=== PATIENT | male | born 1955 | race Caucasian/White ===

== ENCOUNTER → 2019-04-28 08:52 | Outpatient (CLI) | payer BC, OTHER, SELFPAY ==
--- NOTE | ~2019-04-28 | XR_ITS ---
XR hip LT 2V w AP pelvis DATE: 04/28/2019 09:18 INDICATION: Left hip pain TECHNIQUE: AP pelvis. AP and lateral views of left hip COMPARISON: 05/31/2016 pelvis and left hip FINDINGS: Status post left total hip arthroplasty; stable lucencies along the superolateral left acet abulum, not significantly changed since 05/31/2016.. No pelvic fracture or left hip fracture or disloc ation. The pubic symphysis and sacroiliac joints appear intact. Mild right hip osteoarthritis. Enthesopathy of the pelvic bones. IMPRESSION: Left total hip arthroplasty Mild right hip osteoarthritis Reviewed, dictated and finalized at location B. H PICKER
== END ==
PROVIDERS: PCP Family Medicine; Visit Provider Nurse Practitioner Family
DX: M16.12 Unilateral primary osteoarthritis, left hip (principal)
CPT/HCPCS: 73502; 73521

== ENCOUNTER 2020-01-07 08:23 | Outpatient (CLI) | payer BC, OTHER, SELFPAY ==
[2020-01-07 09:04] LABS: Basophils Percent Auto 0.4 % (0.2-1.2); Eosinophils Absolute Auto 0.3 K/mm3 (0-0.3); Eosinophils Percent Auto 2.9 % (0-4.4); Hematocrit 47.6 % (42.0-52.0); Hemoglobin 15.6 g/dL (14.0-18.0); Immature Granulocyte Absolute 0.03 K/mm3 (0.00-0.031); Immature Granulocyte Percent A 0.4 % (0-0.5); Lymphocytes Absolute Auto 2.89 K/mm3 (0.9-3.2); Lymphocytes Percent Auto 33.8 % (18.3-44.2); Mean Corpuscular HGB Conc 32.8 g/dl (32-36); Mean Corpuscular Hemoglobin 30.1 pg (26-34); Mean Corpuscular Volume 91.9 fl (80-100); Mean Platelet Volume 12.5 fl (7.4-10.4); Monocytes Absolute Auto 0.5 K/mm3 (0.1-0.6); Monocytes Percent Auto 6.3 % (2.6-8.5); Neutrophils Absolute Auto 4.8 K/mm3 (1.3-6.7); Neutrophils Percent Auto 56.2 % (45.5-73.1); Platelet Count Result 122 k/mm3 (150-375); Red Blood Count 5.18 M/mm3 (4.6-6.20); Red Cell Distribution Width 13.8 % (11.5-14.5); White Blood Count 8.5 K/mm3 (4.5-10.0)
[2020-01-07 09:08] LABS: Iron 67 ug/dL (49-181)
[2020-01-07 09:10] LABS: Alanine Aminotransferase 27 U/L (4-50); Albumin Level 3.9 g/dL (3.5-5.1); Alkaline Phosphatase 89 U/L (38-126); Anion Gap 4 mmol/L (8-16); Aspartate Amino Transferase 27 U/L (17-59); Bilirubin,Total 0.6 mg/dL (0.2-1.3); Blood Urea Nitrogen 24 mg/dL (9-20); Calcium 8.9 mg/dL (8.4-10.2); Carbon Dioxide 32 mmol/L (22-30); Chloride 104 mmol/L (98-107); Estimated Glomerular Filt Rate > 60; Glucose 102 mg/dL (75-110); Potassium 5.1 mmol/L (3.4-5.0); Sodium 140 mmol/L (137-145)
[2020-01-07 09:19] LABS: Percent Iron Saturation 22 % (20-50)
[2020-01-07 10:17] LABS: Folic Acid 19.7 ng/mL (2.76->20)
== END 2020-01-07 08:24 | disposition home or self-care (01) ==
LOC: ANHLAB 08:26
PROVIDERS: PCP Family Medicine; Visit Provider Internal Medicine Hematology & Oncology
DX: D69.59 Other secondary thrombocytopenia (principal)
CPT/HCPCS: 36415; 80053; 82607; 82728; 82746; 83540; 83550; 85025

== ENCOUNTER 2020-01-08 08:40 | Outpatient (CLI) | payer BC, OTHER, SELFPAY ==
--- NOTE | ~2020-01-08 | US_ITS ---
EXAMINATION: US abdomen complete DATE: 01/08/2020 09:25 INDICATION: Other secondary thrombocytopenia. TECHNIQUE: Multiple grayscale and Doppler ultrasound images of the abdomen were obtained. COMPARISON: None FINDINGS: The visualized portions of the head and body of the pancreas are normal. The abdominal aort a is normal in caliber. Inferior vena cava is normal. The liver is normal without focal lesion. No li stephan surface nodularity. There is normal flow in main portal vein. The gallbladder is absent. The comm on duct is normal and measures 8 mm. The kidneys are normal in size. The spleen is normal in size and measures 12.9 cm. IMPRESSION: 1. Normal complete abdomen ultrasound status post cholecystectomy. Reviewed, dictated and finalized at location A.
== END 2020-01-08 08:41 | disposition home or self-care (01) ==
PROVIDERS: PCP Family Medicine; Visit Provider Internal Medicine Hematology & Oncology
DX: D69.59 Other secondary thrombocytopenia (principal)
CPT/HCPCS: 76700

== ENCOUNTER → 2020-02-02 10:12 | Outpatient (CLI) | payer BC, OTHER, SELFPAY ==
--- NOTE | ~2020-02-02 | XR_ITS ---
EXAMINATION: XR_[id number]_CR DATE: 02/02/2020 10:49 INDICATION: Neck pain. TECHNIQUE: 4 views of cervical spine on 5 radiographs were obtained. COMPARISON: Cervical spine radiographs 07/23/2006 FINDINGS: Bone alignment is normal. Vertebral body heights and intervertebral disc heights are normal . There are bulky anterior endplate osteophytes from C4-C5 through C6-C7. The facet joints are unrema rkable. No central canal stenosis or prevertebral soft tissue swelling. IMPRESSION: 1. Mild cervical spondylosis. Reviewed, dictated and finalized at location B. APPLIANCE ASSEMBLER
--- NOTE | ~2020-02-02 | XR_ITS ---
EXAMINATION: XR shoulder RT min 2V EXAM DATE: 02/02/2020 10:49 INDICATION: M25.511 - Pain in right shoulder . TECHNIQUE: The following right shoulder projections obtained: frontal projection with internal rotati on, frontal projection with external rotation, Grashey, and axillary (4+ views). There is no prior s tudy for comparison. FINDINGS: No evidence of right shoulder rotator cuff calcific tendinosis. There is moderate glenoh umeral, severe acromioclavicular joint primary osteoarthritis. Bony productive change along the infe rior aspect of the glenoid. There are no acute fractures or dislocations identified. There is no sub cutaneous gas. The soft tissue is unremarkable. There are no radiopaque foreign bodies. IMPRESSION: Osteoarthritis. Reviewed, dictated and finalized at location A. ASSOCIATE IMPRESSION: Osteoarthritis.
== END ==
PROVIDERS: Visit Provider Nurse Practitioner Family
DX: M47.892 Other spondylosis, cervical region (principal); M19.011 Primary osteoarthritis, right shoulder
CPT/HCPCS: 72040; 73030

== ENCOUNTER → 2020-04-29 00:19 | Outpatient (CLI) | payer BC, OTHER, SELFPAY ==
[2020-04-29 20:39] LABS: SARS-CoV-2 RNA PCR Negative
== END ==
PROVIDERS: PCP Family Medicine; Visit Provider Orthopaedic Surgery
DX: Z01.812 Encounter for preprocedural laboratory examination (principal); Z20.822 Contact with and (suspected) exposure to COVID-19
CPT/HCPCS: C9803; U0003; U0005

== ENCOUNTER 2020-05-01 10:26 | Outpatient (CLI) | payer BC, OTHER, SELFPAY ==
--- NOTE | 2020-05-01 10:30 | ECG_ITS ---
Measurements Intervals Filion Rate: 61 P: 36 CA: 152 QRS: 35 QRSD: 95 T: 72 QT: 408 QTc: 412 Interpretive Statements SINUS RHYTHM WITH SINUS ARRHYTHMIA NONSPECIFIC ST & T-WAVE ABNORMALITY- HIGH LATERAL LEADS BORDERLINE ECG Electronically Signed On 05-01-2020 10:43:39 DEPENDENCY COUNSELOR by Jace Heard D.O.
== END 2020-05-01 10:27 | disposition home or self-care (01) ==
LOC: ANHSURGERY 10:30
PROVIDERS: PCP Family Medicine; Visit Provider Orthopaedic Surgery
DX: Z01.818 Encounter for other preprocedural examination (principal); I10 Essential (primary) hypertension; R94.31 Abnormal electrocardiogram [ECG] [EKG]
CPT/HCPCS: 93005

== ENCOUNTER 2020-05-03 00:19 | Day surgery (SDC) | payer BC, OTHER, SELFPAY ==
--- NOTE | 2020-04-25 10:17 | PM.IMHP ---
H&P: HPI History of Present Illness Chief Complaint: Right shoulder pain Narrative: Shoulder/Arm Injury/Condition Pt presents with Right shoulder pain. His pain has been present for years but he has noticed worsening pain, over the past ~3 months, after he was cutting a tree down. His pain is primarily posterior and radiates up the right side of his neck. The pain does wake him at night. He had an MRI 02/04/2020. Dominant hand: right Current symptoms: Reports radiation Location: ACJ, humeral neck, posterior, medial, lateral, lateral neck - right and submandibular Character: constant Onset: 4-6 months Exacerbated by: motion, prolonged activity, reaching/overhead motion and lying on affected side Previous treatments: Anti-inflammatory meds: right and Ice: right Improved by treatment/surgery: some Review of Systems Review of Systems: All systems reviewed & are unremarkable except as noted in HPI and below Constitutional: Constitutional: Denies headache(s) and Denies weakness Eyes: Eyes: Denies blurry vision, Denies change in vision and Denies loss of vision ENT: Denies dizziness, Denies dry mouth, Denies headache(s) and Denies nasal congestion Cardiovascular: Cardiovascular: Denies chest pain, Denies syncope, Denies leg edema and Denies dyspnea on exertion Respiratory: Respiratory: Denies cough and Denies dyspnea on exertion Gastrointestinal: Gastrointestinal: Denies abdominal pain, Denies constipation and Denies diarrhea Genitourinary: Genitourinary: Denies urinary frequency Musculoskeletal: Musculoskeletal: Reports as per HPI and Denies numbness Integumentary/Breasts: Skin/Breast: Reports system reviewed and no additional complaints, except as docu Neurologic: Denies dizziness, Denies syncope, Denies headache(s), Denies loss of vision, Denies numbness and Denies weakness Psychiatric: Psychiatric: Reports no additional psychiatric complaints Endocrine: Endocrine: Reports no additional endocrine complaints Hematologic/Lymphatic: Hematologic/Lymphatic: Reports no additional hematologic/lymphatic complaints [facility] Past Medical History Medical History (Updated 03/30/20 @ 14:59 by Najma Pena, RT(R)) BMI 38.0-38.9,adult Claustrophobia Surgical History Surgical History (Updated 03/30/20 @ 14:59 by Najma Pena, RT(R)) History of total right hip arthroplasty Family History Family History Father Hypertension Cerebrovascular accident Family history of diabetes mellitus in first degree relative Family history of coronary artery disease Grandparent Family history of malignant neoplasm Mother Family history of Alzheimer's disease Sibling Acute myocardial infarction Other Family history of heart disease in male family member before age 55 Social History Social History (Updated 03/30/20 @ 15:00 by Najma Pena, RT(R)) Smoking status: Never smoker Alcohol intake: current Drinks per week: 1 Substance use: never Substance use type: does not use Gender identity (if verbalized by the patient): Male Meds Home Medications and Allergies Home Medications Medication Instructions Recorded Confirmed Type naproxen sodium 220 mg tablet 220 mg PO Q12H 04/14/19 03/30/20 History sildenafil 100 mg tablet 100 mg PO DAILY PRN #15 tablet 09/29/19 03/30/20 Rx fluticasone propionate 50 See Rx Instructions .ROUTE 01/16/20 03/30/20 Rx mcg/actuation nasal .COMPLEX #16 gram spray,suspension alprazolam 0.25 mg tablet 0.25 mg PO BID PRN #4 tablet 02/01/20 03/30/20 Rx venlafaxine 75 mg capsule,extended See Rx Instructions .ROUTE 02/14/20 03/30/20 Rx release 24 hr .COMPLEX #90 cap tamsulosin 0.4 mg capsule See Rx Instructions .ROUTE 02/23/20 03/30/20 Rx .COMPLEX #90 cap hydrocodone 5 mg-acetaminophen 300 1 tablet PO TID PRN #21 tablet 03/01/20 03/30/20 Rx mg tablet nebivolol 5 mg tablet See Rx Instructions .ROUTE 03/21/20
[2020-04-27 18:29] VITALS: BMI 39.9
--- NOTE | 2020-05-02 12:09 | WPDANESEPPF ---
Anes - Initial Pre Proc Eval Procedure: Operation Date: 05/03/20 12:00 Proposed Procedures p Right Rotator Cuff Repair - Naun Elmore MD Date/Time: 05/02/20 12:09 Surgeon: Naun Elmore MD Pre Op Diagnosis: Right Shoulder Rotator Cuff Tear Patient Data Age: 64 Gender: M Height: 1.75 m Weight: 122.72 kg Allergies Allergy/AdvReac Type Severity Reaction Status Date / Time No Known Allergies Allergy Verified 04/27/20 17:55 Home Medications Medication Instructions Recorded Confirmed Type naproxen sodium 220 mg tablet 220 mg PO Q12H 04/14/19 04/27/20 History venlafaxine 75 mg capsule,extended See Rx Instructions .ROUTE 02/14/20 04/27/20 Rx release 24 hr .COMPLEX #90 cap chlorhexidine gluconate 4 % 1 applic TOPICAL ONCE #237 ml 04/03/20 04/27/20 Rx topical liquid Bystolic 5 mg PO DAILY 04/27/20 04/27/20 History cetirizine [Zyrtec] 10 mg PO DAILY 04/27/20 04/27/20 History ovptuskxyykc-kvq-ksrp-FA-vit K 1 tablet PO 04/27/20 History [Adults Multivitamin] rosuvastatin 10 mg PO DAILY 04/27/20 04/27/20 History tamsulosin 0.4 mg PO DAILY 04/27/20 04/27/20 History Patient hx anesthesia problems: none Family hx anesthesia problems: none PMFSH Past Medical History Medical History (Updated 05/02/20 @ 12:10 by Nabeel West MD) BMI 38.0-38.9,adult Claustrophobia Depression Essential (primary) hypertension Mixed hyperlipidemia JESS (obstructive sleep apnea) Radiculopathy due to disorder of intervertebral disc of lumbar spine Surgical History Surgical History (Updated 03/30/20 @ 14:59 by Najma Pena RT(R)) History of total right hip arthroplasty Family History Family History Father Hypertension Cerebrovascular accident Family history of diabetes mellitus in first degree relative Family history of coronary artery disease Grandparent Family history of malignant neoplasm Mother Family history of Alzheimer's disease Sibling Acute myocardial infarction Other Family history of heart disease in male family member before age 55 Social History Social History (Updated 03/30/20 @ 15:00 by Najma Pena RT(R)) Smoking status: Never smoker Alcohol intake: current Drinks per week: 1 Substance use: never Substance use type: does not use Living arrangements: with family Gender identity (if verbalized by the patient): Male Spiritual care concerns: No Anes - Eval Final PreProcedure Day of Procedure 05/02/20 12:09 Patient weight: obese Heart: regular rate and rhythm Lungs: clear to auscultation and normal air movement Airway: Mallampati scale class II Neurological: alert and oriented Last oral intake: >/= 8 hours ASA classification: III Emergent: no Anesthetic plan: proceed Anesthesia type and monitoring: general ETT Informed Consent: The patient's anesthetic plan and its attendant risks and benefits were discussed with the patient/family/POA. Questions were solicited and answers provided to the satisfaction of the patient/family/POA.
--- NOTE | 2020-05-02 12:11 | WPDANESPNB ---
Anes - Peripheral Nerve Block Date/Time: 05/02/20 12:11 I have discussed with the patient/family/POA the placement of a peripheral nerve block for post-operative pain management, including associated risks, benefits, complications, and side effects. Alternative methods of post-operative analgesia were detailed. Questions were solicited and answers provided to the satisfaction of the patient/family/POA. Time-Out: A pre-procedural Time-Out was completed immediately before starting the procedure and confirmed: Patient Identification, Site, Procedure, Patient Position and the Availability of Requisite Equipment. Clinical Indications: Acute post-operative pain management requested by the operative surgeon. Nerve Block Insertion Note Anes-nerve block: supraclavicular right Patient position: supine Skin prep: chlorhexidine Needle: 22 gauge, stimulating, insulated echogenic needle. Needle length: 80 mm Technique: ultrasound (in plane) Injectate: bupivacaine 0.5% with epi 5 mcg/ml (20cc) Observations: tolerated well Complications: none Procedure start time:: 1305 Procedure end time:: 1310
[2020-05-03] VITALS (7 sets, daily range): BP systolic 110–162; BP diastolic 66–85; PULSE 70–87; RESP 16–19; TEMP 36.2–36.6; O2SAT 93–97
--- NOTE | 2020-05-03 07:38 | WPDHPUPDATE1 ---
History and Physical Update Update Date/Time: 05/03/20 07:38 History and Physical has been reviewed, including an updated exam of the patient. There are NO changes in the patient's condition. Risks, benefits, and alternatives have been discussed and questions answered. Patient agrees to proceed with procedure.
[2020-05-03] MEDS: ACETAMINOPHEN 500 MG TABLET 1000 MG PO (10:41)
[2020-05-03] MEDS: CELECOXIB 200 MG CAPSULE PO (10:42)
[2020-05-03] MEDS: LACTATED RINGERS 1,000 ML 30 ML IV CONT ×2 (10:45→15:28)
--- NOTE | 2020-05-03 11:02 | SUR.PREOP ---
PT UPDATED ON SURGERY TIME DELAY.
--- NOTE | 2020-05-03 12:50 | SUR.PREOP ---
1225 PT UPDATED ABOUT CONTINUED SURGERY TIME DELAY
[2020-05-03] MEDS: ceFAZolin 3 GM/D5W 100 ML 100 ML IVPB (13:19)
--- NOTE | 2020-05-03 15:33 | P.OP_ITS ---
Procedure Note - Detailed Date of procedure: 05/03/20 Pre-op diagnosis: Right Shoulder Rotator Cuff Tear Post-op diagnosis: same Procedure performed: REPAIR OF RIGHT ROTATOR CUFF Description of procedure: THE PATIENT WAS TAKEN TO THE OPERATING ROOM AND THEN INTUBATED AND PLACED IN THE BEACH CHAIR POSITION. THE RIGHT UPPER EXTREMITY WAS PREPPED AND DRAPED IN THE NORMAL STERILE FASHION. AN INCISION WAS MADE IN BETWEEN THE TRISTAN-LATERAL ACROMION AND THE AC JOINT. THE FASCIA WAS IDENTIFIED. NEXT A MINI OPEN INCISION WAS MADE THROUGH THE DELTOID MUSCLE EXPOSING THE SUBACROMIAL SPACE. A LIMITED ACROMIOPLASTY WAS PREFORMED. THE ROTATOR CUFF WAS IDENTIFIED. THERE WAS A FULL THICKNESS TEAR. IT MEASURED APPROXIMATELY 2 CM X 1 CM. THE GREATER TUBEROSITY WAS DEBRIDED TO BLEEDING BONE. 2 ARTHREX 5.5 SUTURE ANCHORS WERE PLACED IN TO GOOD BONE AND HAD VERY GOOD BITES. GABINO-WAGNER TYPE REPAIRS WERE DONE TO THE ROTATOR CUFF AND THERE WAS GOOD APPROXIMATION TO THE GREATER TUBEROSITY. THE REPAIR WAS EXCELLENT. THERE WAS NO IMPINGEMENT ON THE REPAIR FROM THE ACROMION WITH RANGE OF MOTION. THE WOUND WAS IRRIGATED WITH COPIOUS AMOUNTS OF ANTIBIOTIC SOLUTION. THE DELTOID MUSCLE WAS REPAIRED WITH #2 FIBER WIRE AND 0 VICRYL SUTURE. THE SUBCUTANEOUS LAYER WAS APPROXIMATED WITH 2- 0 VICRYL. THE SKIN WAS APPROXIMATED WITH 3-0 QUIL AND DERMABOND. STERILE DRESSING WAS APPLIED. PATIENT WAS EXTUBATED. Anesthesia: GETA Surgeon: Naun Elmore MD Estimated blood loss (mL): 20 Complications: No immediate complications Condition: stable Disposition: PACU
== END 2020-05-03 16:57 | disposition home or self-care (01) ==
PROVIDERS: Family Provider Family Medicine; PCP Family Medicine; Visit Provider Orthopaedic Surgery
PROC: (CPT 23420; principal; 2020-05-03 12:00)
DX: M75.101 Unspecified rotator cuff tear or rupture of right shoulder, not specified as traumatic (principal); G89.18 Other acute postprocedural pain
CPT/HCPCS: 23420; 64415; A9270; C1713; J0330; J0690; J1100; J2250; J2370; J2405; J2704; J3010; J7120

== ENCOUNTER → 2020-06-06 00:31 | Outpatient (CLI) | payer MEDICARE, BC, OTHER, SELFPAY ==
[2020-06-06 18:32] LABS: SARS-CoV-2 RNA PCR Negative
== END ==
PROVIDERS: PCP Family Medicine; Visit Provider Orthopaedic Surgery
DX: Z01.812 Encounter for preprocedural laboratory examination (principal); Z20.822 Contact with and (suspected) exposure to COVID-19
CPT/HCPCS: C9803; U0003; U0005

== ENCOUNTER 2020-06-09 14:33 | Inpatient (IN) | payer MEDICARE, BC, OTHER, SELFPAY ==
[2020-06-05 15:45] VITALS: BMI 40.6
--- NOTE | 2020-06-08 10:18 | WPDANESEPPF ---
Anes - Initial Pre Proc Eval Procedure: Operation Date: 06/09/20 10:00 Proposed Procedures p Right Shoulder Incision And Drainage - Naun Elmore MD Date/Time: 06/08/20 10:18 Surgeon: Naun Elmore MD Pre Op Diagnosis: Post Op Wound Abscess Patient Data Age: 64 Gender: M Height: 1.75 m Weight: 125 kg Allergies Allergy/AdvReac Type Severity Reaction Status Date / Time No Known Allergies Allergy Verified 06/09/20 08:17 Home Medications Medication Instructions Recorded Confirmed Type naproxen sodium 220 mg tablet 220 mg PO Q12H 04/14/19 06/09/20 History Adults Multivitamin 1 tablet PO DAILY 04/27/20 06/09/20 History Zyrtec 10 mg PO DAILY 04/27/20 06/09/20 History nebivolol 5 mg tablet See Rx Instructions .ROUTE 05/08/20 06/09/20 Rx .COMPLEX #90 tablet rosuvastatin 10 mg tablet See Rx Instructions .ROUTE 05/08/20 06/09/20 Rx .COMPLEX #90 tablet tamsulosin 0.4 mg capsule See Rx Instructions .ROUTE 05/08/20 06/09/20 Rx .COMPLEX #90 capsule venlafaxine 75 mg capsule,extended See Rx Instructions .ROUTE 05/12/20 06/09/20 Rx release 24 hr .COMPLEX #90 cap clindamycin HCl 300 mg capsule 300 mg PO TID #42 cap 05/29/20 06/09/20 Rx Patient hx anesthesia problems: none Family hx anesthesia problems: none PMFSH Past Medical History Medical History BMI 38.0-38.9,adult Claustrophobia Depression Essential (primary) hypertension Mixed hyperlipidemia JESS (obstructive sleep apnea) Radiculopathy due to disorder of intervertebral disc of lumbar spine Surgical History Surgical History History of total right hip arthroplasty Family History Family History Father Hypertension Cerebrovascular accident Family history of diabetes mellitus in first degree relative Family history of coronary artery disease Grandparent Family history of malignant neoplasm Mother Family history of Alzheimer's disease Sibling Acute myocardial infarction Other Family history of heart disease in male family member before age 55 Social History Social History Second hand tobacco smoke exposure: No Alcohol intake: current Drinks per week: 1 Substance use: never Substance use type: does not use Living arrangements: with family Gender identity (if verbalized by the patient): Male Spiritual care concerns: No Anes - Eval Final PreProcedure Day of Procedure 06/08/20 10:18 Patient weight: morbidly obese Heart: regular rate and rhythm Lungs: clear to auscultation and normal air movement Airway: Mallampati scale class III Neurological: alert and oriented Last oral intake: >/= 8 hours ASA classification: III Emergent: no Anesthetic plan: proceed Anesthesia type and monitoring: general ETT and standard monitoring Informed Consent: The patient's anesthetic plan and its attendant risks and benefits were discussed with the patient/family/POA. Questions were solicited and answers provided to the satisfaction of the patient/family/POA.
[2020-06-09] VITALS (12 sets, daily range): BP systolic 113–144; BP diastolic 59–78; PULSE 67–93; RESP 12–18; TEMP 36.1–36.9; O2SAT 94–100; BMI 43.2
--- NOTE | ~2020-06-09 | XR_ITS ---
EXAMINATION: XR chest PICC line DATE: 06/11/2020 14:14 INDICATION: PICC line placement TECHNIQUE: frontal view of the chest was obtained. COMPARISON: Chest radiograph dated 11/30/2008 FINDINGS: Left upper extremity peripherally inserted central venous catheter (PICC) tip at the caudal superior vena cava. Lungs remain clear with no focal airspace opacities, pulmonary edema, pleural effusion or pneumothorax. The cardiomediastinal silhouette is within normal limits for AP technique. There are b ridging osteophytes at multiple levels in the spine, consistent with diffuse idiopathic skeletal hype rostosis (DISH). 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 IMPRESSION: 1. Left upper extremity peripherally inserted central venous catheter tip at the caudal superior vena cava. 2. No acute cardiopulmonary disease. Reviewed, dictated and finalized at location A. IMPRESSION: 1. Left upper extremity peripherally inserted central venous catheter tip at th e caudal superior vena cava. 2. No acute cardiopulmonary disease.
--- NOTE | 2020-06-09 07:24 | WPDHPUPDATE1 ---
History and Physical Update Update Date/Time: 06/09/20 07:24 History and Physical has been reviewed, including an updated exam of the patient. There are NO changes in the patient's condition. Risks, benefits, and alternatives have been discussed and questions answered. Patient agrees to proceed with procedure.
[2020-06-09] MEDS: LACTATED RINGERS 1,000 ML 30 ML IV CONT ×2 (08:39→13:19)
[2020-06-09] MEDS: ACETAMINOPHEN 500 MG TABLET 1000 MG PO (08:39)
[2020-06-09] MEDS: CELECOXIB 200 MG CAPSULE PO (08:40)
[2020-06-09] MEDS: BUPIVACAINE HCL 0.5% PF 30 ML VIAL INFILTRATE (12:29)
[2020-06-09] MEDS: fentaNYL CITRATE INJ (*CRX) 100 MCG/2 ML VIAL 25 MCG IV PUSH ×5 (13:38→14:15)
--- NOTE | 2020-06-09 13:49 | PM.PROC ---
Procedure Note - Detailed Date of procedure: 06/09/20 Pre-op diagnosis: Post Op Wound Abscess RIGHT SHOULDER WOUND INFECTION Post-op diagnosis: same Procedure performed: INCISION AND DRAINAGE AND IRRIGATION AND DEBRIDEMENT RIGHT SHOULDER ABSCESS Description of procedure: HISTORY: IGNACIA UNDERWENT RIGHT ROTATOR CUFF REPAIR ABOUT 5 WEEKS AGO. POST OP F/U REVEALED HE HAD A SEROUS DRAINING WOUND AT ABOUT 4 WEEKS POSTOP. HE WAS THEN FOLLOWED CLOSELY AND THE WOUND SHOWED SIGNS OF INFECTION WITH PURULENCE DESPITE ORAL ANTIBIOTIC USE. HE WAS INDICATED FOR I AND D RIGHT SHOULDER. PROCEDURE: THE THE PATIENT WAS TAKEN TO THE OPERATING ROOM AND THEN INTUBATED AND PLACED IN THE BEACH CHAIR POSITION. THE RIGHT UPPER EXTREMITY WAS PREPPED AND DRAPED IN THE NORMAL STERILE FASHION WITH BETADINE SCRUB AND PAINT. AN INCISION WAS MADE OVER THE OLD INCISION. PURULENCE WAS DRAINING FROM THE SUB CUT SPACE. CULTURES WERE PREFORMED AND ANTIBIOTICS WERE STARTED. THE DELTOID MUSCLE WAS INCISED AND THE SUB ACROMIAL SPACED WAS ENTERED. THERE WAS COPIOUS AMOUNTS OF PURULENCE. THE ROTATOR CUFF WAS IDENTIFIES AND WAS FOUND TO BE RETRACTED AND THE OLD SUTURES WERE DETACHED FROM THE CUFF AND ABOUT 50% WAS DETACHED. THE OLD SUTURES WERE REMOVED THE WOUND WAS IRRIGATED WITH COPIOUS AMOUNTS OF ANTIBIOTIC SOLUTION. DEVITALIZED CUFF TISSUE WAS DEBRIDED AND BURSAL TISSUE WAS DEBRIDED. THE ROTATOR CUFF WAS REASSESSED. THE I/3 ANTERIOR CUFF WAS ATTACHED TO THE GREATER TUBEROSITY. THE WOUND THEN WAS IRRIGATED WITH STERILE BETADINE AND WATER FOR ABOUT 3 MIN. THE WOUND THEN WAS IRRIGATED WITH ABOUT 5 LITERS OF ANTIBIOTIC SOLUTION. A DRAIN WAS PLACED IN THE SUB ACROMIAL SPACE. THE DELTOID WAS REPAIRED WITH No. 1 VICRYL SUTURE. THE SUBCUTANEOUS LAYER WAS APPROXIMATED WITH 2-0 VICRYL. THE SKIN WAS APPROXIMATED WITH 3-0 PROLINE. STERILE DRESSING WAS APPLIED. PATIENT WAS EXTUBATED. Anesthesia: GETA Surgeon: Naun Elmore MD Estimated blood loss (mL): 30 Drains: Yes Complications: No immediate complications Condition: stable Disposition: PACU Findings: GRAM STAIN SHOWING MANY WBCs AND NO ORGANISMS
--- NOTE | 2020-06-09 14:38 | ADMGEN ---
This patient, Thomas Branham, was admitted to [facility] post-operatively. Patient/family oriented to hospital policies and general routines including ID bracelet, bed and alarms, visiting hours, pain management, procedures, bathroom and other care routines, personal items, smoking policy, room service/diet, and visiting hours. Information on how to activate the Rapid Response Team has been discussed. Patient/Family are encouraged to report perceived risks to care and to ask questions if they do not understand what they are told or what they should do.
[2020-06-09] MEDS: diazePAM (*CRX) 5 MG TABLET PO (15:25)
[2020-06-09] MEDS: HYDROcodone/acetaminophen (*CRX) 7.5-325 MG TABLET 1 TAB PO ×3 (15:25→22:16)
[2020-06-09 15:37] LABS: CRP 1.9 mg/dL (<1.0)
[2020-06-09] MEDS: CLINDAMYCIN HCL 150 MG CAP 300 MG PO (16:12)
[2020-06-09] MEDS: NAPROXEN SODIUM 220 MG TABLET PO (16:13)
[2020-06-09] MEDS: DOCUSATE SODIUM 100 MG CAPSULE PO (16:14)
--- NOTE | 2020-06-09 16:30 | WPDCN ---
Assessment and Plan Assessment and plan (1) Wound of right shoulder: Code(s): S41.001A - Unspecified open wound of right shoulder, initial encounter Status: Acute Assessment and Plan: Postoperative day 0, status post incision drainage as well as irrigation debridement of right shoulder abscess. Wound care and pain control deferred to Dr. Elmore. Antibiotic choice also deferred to Dr. Elmore. (2) Obstructive sleep apnea: Code(s): G47.33 - Obstructive sleep apnea (adult) (pediatric) Status: Acute Assessment and Plan: Patient no longer were CPAP. Discussed the importance of use especially as he is frequently tired. (3) Essential hypertension: Code(s): I10 - Essential (primary) hypertension Status: Acute Assessment and Plan: Blood pressures were reviewed and they are stable postoperatively. Continue antihypertensives and monitor daily. (4) Mixed hyperlipidemia: Code(s): E78.2 - Mixed hyperlipidemia Status: Acute Assessment and Plan: Continue statin; check LFTs in a.m. (5) Benign prostatic hyperplasia: Code(s): N40.0 - Benign prostatic hyperplasia without lower urinary tract symptoms Status: Acute Assessment and Plan: Does not seem well controlled as patient gets up to urinate 4 or 5 times a night. Continue tamsulosin. Consider addition of another agent. (6) Anxiety: Code(s): F41.9 - Anxiety disorder, unspecified Status: Acute Assessment and Plan: No acute issues. Continue venlafaxine. Additional Plan Thank you for allowing us to participate in this patient's care. Please do not hesitate to contact us with any questions. Supervising physician for this medical consultation is Dr. Madalyn Perez. [facility] Data of Consult Date/Time: 06/09/20 16:30 Requesting Physician: Naun Elmore MD Primary Care Provider: Omer Davies MD Consult Narrative Narrative: This is a 64-year-old male with hypertension, hyperlipidemia, anxiety, and benign prostatic hyperplasia whom the hospitalist service has been consulted for management of his medical conditions postoperatively. He had a right rotator cuff repair done on 05/03/2020 and several weeks later he began to notice clear yellow drainage coming from the bandages. When the bandages fell off expectantly nearly 4 weeks postop, he noticed 2 small holes along the incision line with varying amounts of discharge. He was seen in the office and was started on clindamycin for suspected postoperative incision site wound. Unfortunately he began having purulence drainage and was taken to the OR today for I and D, irrigation, and debridement of a right shoulder abscess. At the time my evaluation he has quite a bit of pain, more so than when he had with the original surgery. He rates the pain 5/10 and reports aching discomfort. He denies fever, chills, and sweats. No postoperative chest pain, shortness of breath, nausea, or vomiting. He also denies paresthesias, skin color, and temperature changes distal to the surgical site. Review of Systems Review of Systems: Narrative: Twelve systems were reviewed with pertinent positives and negatives as per HPI. No fever, chills, or sweats. No recent cold or flu symptoms. He denies exposure to those positive for COVID-19. No chest pain or shortness of breath. No cough. No nausea, vomiting, or diarrhea. He denies dysuria. He gets up to urinate approximately 4 to 5 times per night. He used to wear CPAP but lost weight and was able to get off of that. He admits that he has gained weight again but has not started using the CPAP again. He endorses being tired ?all the time.? No history of venous thromboembolism. Except as documented, all other systems were reviewed and are negative. [facility] Past Medical History Medical History (Updated 06/09/20 @ 22:50 by Nicole Amador PA-C) Anxiety Benign prostatic hyperpla
[2020-06-09] MEDS: KETOROLAC 15 MG/ML VIAL (*BKC) IM (17:46)
[2020-06-09] MEDS: FAMOTIDINE 20 MG TABLET PO (22:12)
[2020-06-10] VITALS (8 sets, daily range): BP systolic 120–148; BP diastolic 63–75; PULSE 70–78; RESP 18; TEMP 36.1–36.7; O2SAT 94–98
[2020-06-10] MEDS: KETOROLAC 15 MG/ML VIAL (*BKC) IM ×2 (00:18→05:46)
[2020-06-10] MEDS: HYDROcodone/acetaminophen (*CRX) 7.5-325 MG TABLET 1 TAB PO ×2 (05:39→20:33)
[2020-06-10 05:50] LABS: Basophils Percent Auto 0.2 % (0.2-1.2); Eosinophils Percent Auto 0.1 % (0-4.4); Hematocrit 42.6 % (42.0-52.0); Immature Granulocyte Absolute 0.07 K/mm3 (0.00-0.031); Immature Granulocyte Percent A 0.6 % (0-0.5); Lymphocytes Absolute Auto 1.44 K/mm3 (0.9-3.2); Lymphocytes Percent Auto 12.5 % (18.3-44.2); Mean Corpuscular HGB Conc 32.9 g/dl (32-36); Mean Corpuscular Volume 91.2 fl (80-100); Mean Platelet Volume 12.1 fl (7.4-10.4); Monocytes Absolute Auto 0.7 K/mm3 (0.1-0.6); Monocytes Percent Auto 6.3 % (2.6-8.5); Neutrophils Absolute Auto 9.2 K/mm3 (1.3-6.7); Neutrophils Percent Auto 80.3 % (45.5-73.1); Platelet Count Result 145 k/mm3 (150-375); Red Blood Count 4.67 M/mm3 (4.6-6.20); Red Cell Distribution Width 13.8 % (11.5-14.5); White Blood Count 11.5 K/mm3 (4.5-10.0)
[2020-06-10 06:26] LABS: Alanine Aminotransferase 75 U/L (4-50); Albumin Level 3.3 g/dL (3.5-5.1); Alkaline Phosphatase 91 U/L (38-126); Anion Gap 5 mmol/L (8-16); Aspartate Amino Transferase 56 U/L (17-59); Bilirubin,Total 0.2 mg/dL (0.2-1.3); Blood Urea Nitrogen 27 mg/dL (9-20); Calcium 8.3 mg/dL (8.4-10.2); Carbon Dioxide 30 mmol/L (22-30); Chloride 103 mmol/L (98-107); Estimated CRCL calculation 71 ml/min; Estimated Glomerular Filt Rate 56; Glucose 123 mg/dL (75-110); Potassium 4.6 mmol/L (3.4-5.0); Sodium 138 mmol/L (137-145)
--- NOTE | 2020-06-10 07:59 | P.PNAN_ITS ---
Anes - Prog Note Post-Op Date/Time: 06/10/20 07:59 Cardiovascular status: normal Respiratory status: normal Airway patency: baseline Mental status: baseline Post-Op hydration status: normal Vital Signs: Last Vital Signs Temp 36.1 C L 06/10/20 04:18 Pulse 70 06/10/20 04:18 Resp 18 06/10/20 04:18 BP 127/63 06/10/20 04:18 Pulse Ox 95 06/10/20 04:18 Pain Score (VAS): 6 I/O: Intake & Output 06/09/20 06/09/20 06/10/20 15:59 23:59 07:59 Intake Total 400 440 750 Output Total 20 250 330 Balance 380 190 420 Laboratory Tests 06/10/20 05:33 06/10/20 05:33 06/09/20 06/10/20 06/10/20 14:54 05:33 05:33 WBC 11.5 H RBC 4.67 Hgb 14.0 Hct 42.6 MCV 91.2 MCH 30.0 MCHC 32.9 RDW 13.8 Plt Count 145 L MPV 12.1 H Immature Gran % (Auto) 0.6 H Neut % (Auto) 80.3 H Lymph % (Auto) 12.5 L [place] % (Auto) 6.3 Eos % (Auto) 0.1 Baso % (Auto) 0.2 Lymph # (Auto) 1.44 [place] # (Auto) 0.7 H Eos # (Auto) 0.0 Baso # (Auto) 0.0 Abs Immat Gran (auto) 0.07 H Absolute Neuts (auto) 9.2 H Absolute Nucleated RBC 0.0 Nucleated RBC % 0.0 Sodium 138 Potassium 4.6 Chloride 103 Carbon Dioxide 30 Anion Gap 5 L BUN 27 H Creatinine 1.30 Estim Creat Clear Calc 71 Estimated GFR 56 L Glucose 123 H Calcium 8.3 L Total Bilirubin 0.2 Direct Bilirubin 0.0 AST 56 ALT 75 H Alkaline Phosphatase 91 C-Reactive Protein 1.9 H Total Protein 6.0 L Albumin 3.3 L Microbiology 06/09/20 11:43 Shoulder Right Gram Stain - Final Post-procedural complaints: none Patient Feedback: Patient satisfied with anesthetic care.
[2020-06-10] MEDS: TAMSULOSIN HCL 0.4 MG CAPSULE PO (08:59)
[2020-06-10] MEDS: MULTIVITAMINS /C LUTEIN (CENTRUM SILVER) TABLET *BKC 1 TAB PO (08:59)
[2020-06-10] MEDS: FAMOTIDINE 20 MG TABLET PO ×2 (08:59→20:34)
[2020-06-10] MEDS: CLINDAMYCIN HCL 150 MG CAP 300 MG PO ×3 (08:59→17:33)
[2020-06-10] MEDS: ROSUVASTATIN 10 MG TABLET PO (08:59)
[2020-06-10] MEDS: VENLAFAXINE HCL XR 75 MG CAP.ER.24H PO (08:59)
[2020-06-10] MEDS: DOCUSATE SODIUM 100 MG CAPSULE PO ×2 (08:59→17:33)
[2020-06-10] MEDS: NAPROXEN SODIUM 220 MG TABLET PO ×2 (08:59→17:33)
[2020-06-10] MEDS: LORATADINE 10 MG TABLET PO (08:59)
[2020-06-10] MEDS: NEBIVOLOL HCL 5 MG TABLET PO (09:00)
--- NOTE | 2020-06-10 12:35 | PM.IMPN ---
Progress Note: A&P Assessment and Plan (1) Wound of right shoulder: Code(s): S41.001A - Unspecified open wound of right shoulder, initial encounter Status: Acute Assessment and Plan: Postoperative day 1, status post incision drainage as well as irrigation and debridement of right shoulder abscess. He tolerated the procedure well and pain is well controlled. Wound care and pain control deferred to Dr. Elmore. Continue IV vancomycin per Dr. Elmore. Infectious disease has also been consulted. Wound culture from right shoulder and blood cultures are pending. No microorganisms seen on Gram stain (2) Essential hypertension: Code(s): I10 - Essential (primary) hypertension Status: Acute Assessment and Plan: Blood pressures were reviewed and have been well controlled. 127/63. Continue nebivolol Monitor BP daily (3) Obstructive sleep apnea: Code(s): G47.33 - Obstructive sleep apnea (adult) (pediatric) Status: Acute Assessment and Plan: Patient no longer uses CPAP. Discussed the importance of use especially as he is frequently tired. (4) Mixed hyperlipidemia: Code(s): E78.2 - Mixed hyperlipidemia Status: Acute Assessment and Plan: Continue rosuvastatin. LFTs reviewed and appropriate for continuation statin therapy. (5) Benign prostatic hyperplasia: Code(s): N40.0 - Benign prostatic hyperplasia without lower urinary tract symptoms Status: Acute Assessment and Plan: Does not seem well controlled as patient reports he gets up to urinate 4 or 5 times a night. Continue tamsulosin. May benefit from outpatient urology referral for further management (6) Anxiety: Code(s): F41.9 - Anxiety disorder, unspecified Status: Acute Assessment and Plan: No acute issues. Mood is stable. Continue venlafaxine. Subjective Date/time seen: 06/10/20 12:35 Interval history: Date of service: 06/10/2020 Dated Isaías Branham is a 64-year-old male with history hypertension, hyperlipidemia, JESS, BPH, anxiety who is seen in follow-up for a postoperative surgical wound abscess of the right shoulder, now s/p incision and drainage as well as irrigation and debridement. He is feeling well today. His pain is well controlled at this time. He tolerated the procedure well. His pain is well controlled at rest. He does have some discomfort, which he rates as about 6/10, with movement. Otherwise, he has no concerns. He denies nausea, vomiting, fever, chills. Denies increased redness, swelling, lymphangitic streaking, purulence, drainage, or malodor. Denies dizziness, lightheadedness, weakness. No shortness of breath, cough, chest pain, or palpitations. Denies abdominal pain, cramping, or bloating. Last bowel movement was yesterday morning prior to surgery. Appetite has been good. Denies lower extremity edema. Review of Systems Review of Systems: All systems reviewed & are unremarkable except as noted in HPI and below Exam Narrative: Exam Narrative: Mr. Branham is an obese, well-appearing 64-year-old male who is lying semi recumbent in bed. He appears comfortable and is in NARD. Neuro: awake, alert and oriented x4, speech clear, no focal neuro deficits noted HEENMT: normocephalic, atraumatic, EOMI, sclerae anicteric, moist oral mucosa, tongue midline, nares patent Neck: supple, no lymphadenopathy, large circumference Respiratory: clear to auscultation bilaterally, nonlabored breathing Cardio: regular rate, regular rhythm with S1-S2 Abdomen: Protuberant, normoactive bowel sounds, soft, nontender to palpation, no rigidity or guarding Extremities: Right upper extremity in sling. Surgical dressing in place that is c/d/i. There is a drain with sanguineous output. Neurovascularly intact in bilateral upper and lower extremities. No edema, erythema, cyanosis, clubbing. DP pulses 2+ bilaterally Skin: no rashes
--- NOTE | 2020-06-10 13:34 | PM.PNORT ---
Progress Note: A&P Additional Plan POD [address] NOONAN CONSULT. WILL MOST LIKELY NEED PIC LINE. DRAIN PULLED TODAY. DRESSING CHANGE TOMORROW. Subjective Subjective Date/Time Seen: 06/10/20 13:34 POD 1 DOING WELL PAIN CONTROLLED. Exam Extrem: Other: VSS AFEBRILE DRESSING DRY NV INTACT BILATERAL CALVES SOFT. Objective Data Vital Signs Vital Signs: Vital Signs - 24 hr 06/09/20 13:35 06/09/20 13:54 06/09/20 14:10 Temperature Pulse Rate 78 81 72 Respiratory Rate 13 12 12 Blood Pressure 114/61 113/59 L 118/71 Pulse Oximetry 100 98 96 06/09/20 14:25 06/09/20 14:33 06/09/20 14:55 Temperature 36.1 C L 36.1 C L Pulse Rate 72 69 69 Respiratory Rate 12 18 18 Blood Pressure 125/68 124/75 124/75 Pulse Oximetry 96 95 95 06/09/20 15:30 06/09/20 15:43 06/09/20 17:29 Temperature 36.1 C L 36.4 C Pulse Rate 81 81 82 Respiratory Rate 18 18 Blood Pressure 125/77 125/77 126/77 Pulse Oximetry 94 94 96 06/09/20 20:00 06/10/20 00:00 06/10/20 04:18 Temperature 36.5 C 36.2 C L 36.1 C L Pulse Rate 93 77 70 Respiratory Rate 18 18 18 Blood Pressure 138/73 120/64 127/63 Pulse Oximetry 95 94 95 06/10/20 08:18 06/10/20 09:00 06/10/20 12:18 Temperature 36.1 C L 36.4 C L Pulse Rate 74 78 78 Respiratory Rate 18 18 Blood Pressure 122/65 126/72 Pulse Oximetry 96 98 Intake/Output Intake/Output: Intake & Output 06/07/20 06/08/20 06/09/20 06/10/20 23:59 23:59 23:59 23:59 Intake Total 840 1730 Output Total 270 345 Balance 570 1385 Meds/Results Medications: Active Medications Generic Name Dose Route Start Last Admin Trade Name Freq PRN Reason Stop Dose Admin Acetaminophen 650 mg 06/09/20 14:33 Acetaminophen 325 Mg Tablet PO Q6H PRN Pain Rated 1-3 Hydrocodone Bitart/Acetaminophen 1 tab 06/09/20 14:33 06/10/20 05:39 Hydrocodone/Acetaminophen (*Crx) 7.5-325 Mg Tablet PO 1 tab Q3H PRN Administration Pain Rated 4-6 Clindamycin HCl 300 mg 06/09/20 17:00 06/10/20 12:32 Clindamycin Hcl 150 Mg Cap PO 07/09/20 17:01 300 mg TID MICAELA Administration Diazepam 5 mg 06/09/20 14:33 06/09/20 15:25 Diazepam (*Crx) 5 Mg Tablet PO 5 mg Q8H PRN Administration Muscle Spasm Docusate Sodium 100 mg 06/09/20 17:00 06/10/20 08:59 Docusate Sodium 100 Mg Capsule PO 100 mg BID MICAELA Administration Famotidine 20 mg 06/09/20 21:00 06/10/20 08:59 Famotidine 20 Mg Tablet PO 20 mg Q12HR MICAELA Administration Loratadine 10 mg 06/10/20 09:00 06/10/20 08:59 Loratadine 10 Mg Tablet PO 10 mg QAM MICAELA Administration Magnesium Hydroxide 30 ml 06/09/20 14:33 Magnesium Hydroxide Susp 30 Ml Udc PO BID PRN Constipation Morphine Sulfate 3 mg 06/09/20 14:33 Morphine Sulfate (*Crx) 4 Mg/Ml Inj IV PUSH Q3H PRN Pain Rated 7-10 Multivitamins/Minerals 1 tab 06/10/20 09:00 06/10/20 08:59 Multivitamins /C Lutein (Centrum Silver) Tablet *Bkc PO 1 tab DAILY MICAELA Administration Naproxen 220 mg 06/09/20 17:00 06/10/20 08:59 Naproxen Sodium 220 Mg Tablet PO 220 mg BIDWM MICAELA Administration Nebivolol 5 mg 06/10/20 09:00 06/10/20 09:00 Nebivolol Hcl 5 Mg Tablet PO 5 mg DAILY MICAELA Administration Ondansetron HCl 4 mg 06/09/20 14:33 Ondansetron Inj 4 Mg/2 Ml Vial IV PUSH Q4H PRN Nausea And Vomiting Rosuvastatin Calcium 10 mg 06/10/20 09:00 06/10/20 08:59 Rosuvastatin 10 Mg Tablet PO 10 mg DAILY MICAELA Administration Tamsulosin HCl 0.4 mg 06/10/20 09:00 06/10/20 08:59 Tamsulosin Hcl 0.4 Mg Capsule PO 0.4 mg DAILY MICAELA Administration Venlafaxine HCl 75 mg 06/10/20 09:00 06/10/20 08:59 Venlafaxine Hcl Xr 75 Mg Cap.Er.24h PO 75 mg DAILY MICAELA Administration Labs Labs: Laboratory Results - last 24 hr 06/09/20 06/10/20 06/10/20 14:54 05:33 05:33 WBC 11.5 H RBC 4.67 Hgb 14.0 Hct 42.6 MCV 91.2 MCH 30.0 MCHC
[2020-06-10] MEDS: ZOLPIDEM TARTRATE (*CRX) 5 MG TABLET 10 MG PO (20:33)
[2020-06-11 05:51] LABS: Hematocrit 42.6 % (42.0-52.0); Hemoglobin 13.7 g/dL (14.0-18.0); Mean Corpuscular HGB Conc 32.2 g/dl (32-36); Mean Corpuscular Hemoglobin 29.5 pg (26-34); Mean Corpuscular Volume 91.6 fl (80-100); Mean Platelet Volume 12.3 fl (7.4-10.4); Platelet Count Result 132 k/mm3 (150-375); Red Blood Count 4.65 M/mm3 (4.6-6.20)
[2020-06-11 06:05] LABS: Anion Gap 3 mmol/L (8-16); Blood Urea Nitrogen 30 mg/dL (9-20); Calcium 8.4 mg/dL (8.4-10.2); Carbon Dioxide 30 mmol/L (22-30); Chloride 105 mmol/L (98-107); Estimated CRCL calculation 71 ml/min; Estimated Glomerular Filt Rate 56; Glucose 103 mg/dL (75-110); Potassium 4.1 mmol/L (3.4-5.0); Sodium 138 mmol/L (137-145)
[2020-06-11 06:41] VITALS: BP 156/89; PULSE 63; RESP 16; TEMP 36.4; O2SAT 97
[2020-06-11] MEDS: CLINDAMYCIN HCL 150 MG CAP 300 MG PO (08:35)
[2020-06-11] MEDS: ROSUVASTATIN 10 MG TABLET PO (08:36)
[2020-06-11] MEDS: VENLAFAXINE HCL XR 75 MG CAP.ER.24H PO (08:36)
[2020-06-11] MEDS: MULTIVITAMINS /C LUTEIN (CENTRUM SILVER) TABLET *BKC 1 TAB PO (08:36)
[2020-06-11] MEDS: LORATADINE 10 MG TABLET PO (08:36)
[2020-06-11] MEDS: DOCUSATE SODIUM 100 MG CAPSULE PO ×2 (08:36→17:17)
[2020-06-11] MEDS: NAPROXEN SODIUM 220 MG TABLET PO ×2 (08:36→17:17)
[2020-06-11] MEDS: TAMSULOSIN HCL 0.4 MG CAPSULE PO (08:36)
--- NOTE | 2020-06-11 08:36 | WPDINFPN2 ---
Progress Note: A&P Assessment and Plan (1) Wound of right shoulder: Code(s): S41.001A - Unspecified open wound of right shoulder, initial encounter Status: Acute Assessment and Plan: SSI after rotator cuff repair. L hip replacement REC Vanc #3 -28 days. PICC, discharge planning for home IV. Subjective Date/time seen: 06/11/20 08:36 Objective Data Vital Signs Vital Signs: Vital Signs - 24 hr 06/10/20 09:00 06/10/20 12:18 06/10/20 14:00 Temperature 36.4 C L 36.7 C Pulse Rate 78 78 70 Respiratory Rate 18 18 Blood Pressure 126/72 122/70 Pulse Oximetry 98 97 06/10/20 20:00 06/10/20 23:10 06/11/20 06:41 Temperature 36.6 C 36.4 C L Pulse Rate 71 63 Respiratory Rate 18 16 Blood Pressure 148/75 H 156/89 H Pulse Oximetry 94 94 97 Intake/Output Intake/Output: Intake & Output 06/08/20 06/09/20 06/10/20 06/11/20 23:59 23:59 23:59 23:59 Intake Total 840 3170 300 Output Total 270 2195 400 Balance 570 975 -100 Meds/Results Medications: Active Medications Generic Name Dose Route Start Last Admin Trade Name Freq PRN Reason Stop Dose Admin Acetaminophen 650 mg 06/09/20 14:33 Acetaminophen 325 Mg Tablet PO Q6H PRN Pain Rated 1-3 Hydrocodone Bitart/Acetaminophen 1 tab 06/09/20 14:33 06/10/20 20:33 Hydrocodone/Acetaminophen (*Crx) 7.5-325 Mg Tablet PO 1 tab Q3H PRN Administration Pain Rated 4-6 Diazepam 5 mg 06/09/20 14:33 06/09/20 15:25 Diazepam (*Crx) 5 Mg Tablet PO 5 mg Q8H PRN Administration Muscle Spasm Docusate Sodium 100 mg 06/09/20 17:00 06/10/20 17:33 Docusate Sodium 100 Mg Capsule PO 100 mg BID MICAELA Administration Famotidine 20 mg 06/09/20 21:00 06/10/20 20:34 Famotidine 20 Mg Tablet PO 20 mg Q12HR MICAELA Administration Loratadine 10 mg 06/10/20 09:00 06/10/20 08:59 Loratadine 10 Mg Tablet PO 10 mg QAM MICAELA Administration Magnesium Hydroxide 30 ml 06/09/20 14:33 Magnesium Hydroxide Susp 30 Ml Udc PO BID PRN Constipation Morphine Sulfate 3 mg 06/09/20 14:33 Morphine Sulfate (*Crx) 4 Mg/Ml Inj IV PUSH Q3H PRN Pain Rated 7-10 Multivitamins/Minerals 1 tab 06/10/20 09:00 06/10/20 08:59 Multivitamins /C Lutein (Centrum Silver) Tablet *Bkc PO 1 tab DAILY MICAELA Administration Naproxen 220 mg 06/09/20 17:00 06/10/20 17:33 Naproxen Sodium 220 Mg Tablet PO 220 mg BIDWM MICAELA Administration Nebivolol 5 mg 06/10/20 09:00 06/10/20 09:00 Nebivolol Hcl 5 Mg Tablet PO 5 mg DAILY MICAELA Administration Ondansetron HCl 4 mg 06/09/20 14:33 Ondansetron Inj 4 Mg/2 Ml Vial IV PUSH Q4H PRN Nausea And Vomiting Rosuvastatin Calcium 10 mg 06/10/20 09:00 06/10/20 08:59 Rosuvastatin 10 Mg Tablet PO 10 mg DAILY MICAELA Administration Tamsulosin HCl 0.4 mg 06/10/20 09:00 06/10/20 08:59 Tamsulosin Hcl 0.4 Mg Capsule PO 0.4 mg DAILY MICAELA Administration Venlafaxine HCl 75 mg 06/10/20 09:00 06/10/20 08:59 Venlafaxine Hcl Xr 75 Mg Cap.Er.24h PO 75 mg DAILY MICAELA Administration Zolpidem Tartrate 10 mg 06/10/20 14:59 06/10/20 20:33 Zolpidem Tartrate (*Crx) 5 Mg Tablet PO 10 mg HS PRN Administration Insomnia Labs Labs: Laboratory Results - last 24 hr 06/11/20 06/11/20 05:30 05:30 WBC 9.0 RBC 4.65 Hgb 13.7 L Hct 42.6 MCV 91.6 MCH 29.5 MCHC 32.2 RDW 14.0 Plt Count 132 L MPV 12.3 H Sodium 138 Potassium 4.1 Chloride 105 Carbon Dioxide 30 Anion Gap 3 L BUN 30 H Creatinine 1.30 Estim Creat Clear Calc 71 Estimated GFR 56 L Glucose 103 Calcium 8.4
[2020-06-11 08:38] VITALS: PULSE 77
[2020-06-11] MEDS: NEBIVOLOL HCL 5 MG TABLET PO (08:38)
[2020-06-11] MEDS: FAMOTIDINE 20 MG TABLET PO ×2 (08:40→20:37)
--- NOTE | 2020-06-11 10:15 | PM.PNORT ---
Progress Note: A&P Additional Plan POD [address] NOONAN CONSULTED. PIC LINE TODAY OR TOMORROW. 4 WEEKS IV ABX. WILL DC AFTER PIC AND HE WILL F/U IN MY OFFICE IN 2 WEEKS. LAB DRAW CRP AND CBC IN 1 WEEK AT [facility]. Subjective Subjective Date/Time Seen: 06/11/20 10:15 POD 2 DOING WELL. NO CALF PAIN. Exam Extrem: Other: VSS AFEBRILE DRESSING DRY, DRESSING REMOVED, IMPROVED CELLULITIS, NO ACTIVE DRAINAGE, WOUND HEALING WELL, [place] INTACT Objective Data Vital Signs Vital Signs: Vital Signs - 24 hr 06/10/20 12:18 06/10/20 14:00 06/10/20 20:00 Temperature 36.4 C L 36.7 C 36.6 C Pulse Rate 78 70 71 Respiratory Rate 18 18 18 Blood Pressure 126/72 122/70 148/75 H Pulse Oximetry 98 97 94 06/10/20 23:10 06/11/20 06:41 06/11/20 08:38 Temperature 36.4 C L Pulse Rate 63 77 Respiratory Rate 16 Blood Pressure 156/89 H Pulse Oximetry 94 97 Intake/Output Intake/Output: Intake & Output 06/08/20 06/09/20 06/10/20 06/11/20 23:59 23:59 23:59 23:59 Intake Total 840 3170 780 Output Total 270 2195 400 Balance 570 975 380 Meds/Results Medications: Active Medications Generic Name Dose Route Start Last Admin Trade Name Freq PRN Reason Stop Dose Admin Acetaminophen 650 mg 06/09/20 14:33 Acetaminophen 325 Mg Tablet PO Q6H PRN Pain Rated 1-3 Hydrocodone Bitart/Acetaminophen 1 tab 06/09/20 14:33 06/10/20 20:33 Hydrocodone/Acetaminophen (*Crx) 7.5-325 Mg Tablet PO 1 tab Q3H PRN Administration Pain Rated 4-6 Diazepam 5 mg 06/09/20 14:33 06/09/20 15:25 Diazepam (*Crx) 5 Mg Tablet PO 5 mg Q8H PRN Administration Muscle Spasm Docusate Sodium 100 mg 06/09/20 17:00 06/11/20 08:36 Docusate Sodium 100 Mg Capsule PO 100 mg BID MICAELA Administration Famotidine 20 mg 06/09/20 21:00 06/11/20 08:40 Famotidine 20 Mg Tablet PO 20 mg Q12HR MICAELA Administration Loratadine 10 mg 06/10/20 09:00 06/11/20 08:36 Loratadine 10 Mg Tablet PO 10 mg QAM MICAELA Administration Magnesium Hydroxide 30 ml 06/09/20 14:33 Magnesium Hydroxide Susp 30 Ml Udc PO BID PRN Constipation Morphine Sulfate 3 mg 06/09/20 14:33 Morphine Sulfate (*Crx) 4 Mg/Ml Inj IV PUSH Q3H PRN Pain Rated 7-10 Multivitamins/Minerals 1 tab 06/10/20 09:00 06/11/20 08:36 Multivitamins /C Lutein (Centrum Silver) Tablet *Bkc PO 1 tab DAILY MICAELA Administration Naproxen 220 mg 06/09/20 17:00 06/11/20 08:36 Naproxen Sodium 220 Mg Tablet PO 220 mg BIDWM MICAELA Administration Nebivolol 5 mg 06/10/20 09:00 06/11/20 08:38 Nebivolol Hcl 5 Mg Tablet PO 5 mg DAILY MICAELA Administration Ondansetron HCl 4 mg 06/09/20 14:33 Ondansetron Inj 4 Mg/2 Ml Vial IV PUSH Q4H PRN Nausea And Vomiting Rosuvastatin Calcium 10 mg 06/10/20 09:00 06/11/20 08:36 Rosuvastatin 10 Mg Tablet PO 10 mg DAILY MICAELA Administration Tamsulosin HCl 0.4 mg 06/10/20 09:00 06/11/20 08:36 Tamsulosin Hcl 0.4 Mg Capsule PO 0.4 mg DAILY MICAELA Administration Vancomycin HCl 1 each 06/11/20 08:35 Vancomycin Pharmacist To Dose IVPB PER PROTOCOL MICAELA Venlafaxine HCl 75 mg 06/10/20 09:00 06/11/20 08:36 Venlafaxine Hcl Xr 75 Mg Cap.Er.24h PO 75 mg DAILY MICAELA Administration Zolpidem Tartrate 10 mg 06/10/20 14:59 06/10/20 20:33 Zolpidem Tartrate (*Crx) 5 Mg Tablet PO 10 mg HS PRN Administration Insomnia Labs Labs: Laboratory Results - last 24 hr 06/11/20 06/11/20 05:30 05:30 WBC 9.0 RBC 4.65 Hgb 13.7 L Hct 42.6 MCV 91.6 MCH 29.5 MCHC 32.2 RDW 14.0 Plt Count 132 L MPV 12.3 H Sodium 138 Potassium 4.1 Chloride 105 Carbon Dioxide 30 Anion Gap 3 L BUN 30 H Creatinine 1.30 Estim Creat Clear Calc 71 Estimated GFR 56 L Glucose 103 Calcium 8.4 Quality VTE Prophylaxis VTE prophylaxis: mechanical ordered
--- NOTE | 2020-06-11 10:38 | PM.IMPN ---
Progress Note: A&P Assessment and Plan (1) Wound of right shoulder: Code(s): S41.001A - Unspecified open wound of right shoulder, initial encounter Status: Acute Assessment and Plan: Postoperative day 2, status post incision drainage as well as irrigation and debridement of right shoulder abscess by Dr. Elmore. He tolerated the procedure well and pain is well controlled. Wound care and pain control deferred to Dr. Elmore. Continue IV vancomycin. He will need total 28 days of antibiotic therapy. Arrangements being made for PICC line. Wound culture from right shoulder and blood cultures are pending. No microorganisms seen on Gram stain. Preliminary wound and blood cultures with no growth to date. (2) Essential hypertension: Code(s): I10 - Essential (primary) hypertension Status: Acute Assessment and Plan: Blood pressures were reviewed and have been well controlled. Last BP 156/89, prior to administration of antihypertensives. Continue nebivolol Monitor BP daily. Follow trends and adjust antihypertensive regimen as needed. (3) Obstructive sleep apnea: Code(s): G47.33 - Obstructive sleep apnea (adult) (pediatric) Status: Acute Assessment and Plan: Patient no longer uses CPAP. Discussed the importance of use especially as he is frequently tired. (4) Mixed hyperlipidemia: Code(s): E78.2 - Mixed hyperlipidemia Status: Acute Assessment and Plan: Continue rosuvastatin. LFTs reviewed and appropriate for continuation of statin therapy. (5) Benign prostatic hyperplasia: Code(s): N40.0 - Benign prostatic hyperplasia without lower urinary tract symptoms Status: Acute Assessment and Plan: Does not seem well controlled as patient reports he gets up to urinate 4 or 5 times a night. Denies nocturia at this time. Continue tamsulosin. May benefit from outpatient urology referral for further management (6) Anxiety: Code(s): F41.9 - Anxiety disorder, unspecified Status: Acute Assessment and Plan: No acute issues. Mood is stable. Continue venlafaxine. Subjective Date/time seen: 06/11/20 10:38 Interval history: Date of service: 06/11/2020 Thomas Branham is a 64-year-old male with history of hypertension, hyperlipidemia, JESS, BPH, anxiety who is seen in follow-up for a postoperative surgical wound abscess of the right shoulder, now s/p incision and drainage as well as irrigation and debridement on 06/09/20. He is doing well today. He has no shoulder pain. He denies any purulence, drainage or other issues at the incision site. He has no other concerns. His last bowel movement was 2 days ago prior to surgery. Denies abdominal cramping, bloating, distention. He has been passing gas. He denies nausea, vomiting, fever, chills, dizziness, lightheadedness. He has been able to ambulate independently. His appetite has been good. He has been sleeping well. No shortness of breath, chest pain, palpitations. He is eager for discharge home. Review of Systems Review of Systems: All systems reviewed & are unremarkable except as noted in HPI and below Exam Narrative: Exam Narrative: Mr. Branham is an obese, well-appearing 64-year-old male who is lying semi recumbent in bed. He appears comfortable and is in NARD. Neuro: awake, alert and oriented x4, speech clear, no focal neuro deficits noted HEENMT: normocephalic, atraumatic, EOMI, sclerae anicteric, moist oral mucosa, tongue midline, nares patent Neck: supple, no lymphadenopathy, large circumference Respiratory: clear to auscultation bilaterally, nonlabored breathing Cardio: regular rate, regular rhythm with S1-S2 Abdomen: Protuberant, normoactive bowel sounds, soft, nontender to palpation, no rigidity or guarding Extremities: Right upper extremity in sling. Surgical dressing in place that is c/d/i. Neurovascularly intact in bilateral up
--- NOTE | 2020-06-11 13:40 | CONS_ITS ---
DATE OF CONSULTATION: 06/11/2020 REASON FOR CONSULTATION: Surgical site infection. HISTORY OF PRESENT ILLNESS: A 64-year-old male who has had past left total hip arthroplasty for arthritis and the left hip has not been bothersome for him. In the distant past, he injured his shoulder playing softball on the right side and struggled ever since with shoulder pain and limited range of motion. About 6 months ago, he was lifting a piece of lumber when he felt a sharp burning pain throughout his right arm. He failed conservative measures and was taken to the operating room about 5 weeks prior to admission where he underwent rotator cuff repair. Incision healed well on the patient's account, but about 10 days before admission, he had new onset of wound dehiscence with drainage of serosanguineous fluid. He was given clindamycin which he took for 10 days without fail, but nonetheless had persistent drainage and was taken to the operating room on the day of admission, June 09 where he underwent debridement. No purulence was encountered and devitalized tissue was removed. Cultures were collected. He has been given vancomycin and consultation requested. No fever, chills, or sweats. The clindamycin did cause some nausea, now resolved. No previous operative infections and he has not had fatigue, chills, sweats, headache, myalgias. He has been on no other antibiotics recently. He has been on no systemic steroids in the last 6 weeks for any purpose. HABITS: No tobacco. Social drinker. PRESENT MEDICATIONS: List reviewed. No immunosuppressants. ALLERGIES: NONE KNOWN. PAST MEDICAL HISTORY: In addition to the above, BPH, hypertension, basal cell carcinoma, hyperlipidemia, JESS, obesity, laparoscopic cholecystectomy 2003, vasectomy, and ventral hernia repair. REVIEW OF SYSTEMS: 14-point review otherwise negative. FAMILY HISTORY: Heart disease, stroke, diabetes, Alzheimer's, [place]. SOCIAL HISTORY: He is retired from the [employer]. Lives locally. and his is in general good health. PHYSICAL EXAMINATION: GENERAL: This is a middle-aged male who appears actual age. No respiratory distress. VITAL SIGNS: Afebrile since arrival, 63, 16, 156/89. SKIN: Warm and dry. No generalized rash. No erythroderma. He has no furuncles nor acne. EENT: Conjunctivae are normal. Pupils equal, round, and reactive to light. The oropharynx, oral mucosa normal. Teeth in excellent repair. NECK: No masses, thyromegaly, adenopathy. LUNGS: Clear to auscultation and percussion. CHEST: Equal expansion. Normal AP diameter. CARDIAC: Regular rate and rhythm. No murmur, gallop, or rub. ABDOMEN: Obese, nontender, nondistended. No organomegaly. EXTREMITIES: Without clubbing, cyanosis, edema MUSCULOSKELETAL: He has a surgical dressing over the right anterior shoulder. There is no edema, erythema, warmth, or tenderness. He has a splint in place and I could not test range of motion in the right and left hands. He has normal capillary refill. Pulses and motor tone. LAB: Gram stain from the operating room, many white cells, no organisms seen. Blood cultures, no growth after 1 day's incubation drawn after initiation of antibiotics. White count was 11.5 on postop day 1, now 9.0, hemoglobin 13.7, platelets are 132. His earlier differential was minimal left shift. Chemistry panel normal other than BUN of 30. His CRP 1.9. Coronavirus assay preop was nonreactive. RADIOLOGY: Not redone. ASSESSMENT: 1. Surgical site infection, right shoulder after repair 5 weeks before. Microbiology could include propionibacterium, coagulase-negative Staph, Corynebacterium, less likely streptococcal, staphylococcal including methicillin-resistant Staphylococcus aureus or Gram negative. Clinically
[2020-06-11 15:02] VITALS: BP 142/79; PULSE 63; RESP 16; TEMP 36.4; O2SAT 96
--- NOTE | 2020-06-11 17:34 | PC.NURSE ---
Double Lumen PICC line placed by Eugenio KANG today.
[2020-06-11 20:00] VITALS: BP 153/83; PULSE 66; RESP 18; TEMP 36.2; O2SAT 98
[2020-06-11] MEDS: CENTRAL LINE FLUSH 10 ML IV PUSH (20:37)
[2020-06-11] MEDS: ZOLPIDEM TARTRATE (*CRX) 5 MG TABLET 10 MG PO (20:37)
[2020-06-12 06:00] VITALS: BP 152/89; PULSE 62; RESP 16; TEMP 36; O2SAT 97
[2020-06-12] MEDS: CENTRAL LINE FLUSH 10 ML IV PUSH ×3 (06:10→20:50)
[2020-06-12 06:12] LABS: Basophils Absolute Auto 0.1 K/mm3 (0.0-0.1); Basophils Percent Auto 0.6 % (0.2-1.2); Eosinophils Absolute Auto 0.4 K/mm3 (0-0.3); Eosinophils Percent Auto 4.3 % (0-4.4); Hematocrit 45.2 % (42.0-52.0); Hemoglobin 14.6 g/dL (14.0-18.0); Immature Granulocyte Absolute 0.05 K/mm3 (0.00-0.031); Immature Granulocyte Percent A 0.6 % (0-0.5); Lymphocytes Absolute Auto 2.89 K/mm3 (0.9-3.2); Mean Corpuscular HGB Conc 32.3 g/dl (32-36); Mean Corpuscular Hemoglobin 29.3 pg (26-34); Mean Corpuscular Volume 90.8 fl (80-100); Mean Platelet Volume 12.1 fl (7.4-10.4); Monocytes Absolute Auto 0.6 K/mm3 (0.1-0.6); Monocytes Percent Auto 7.2 % (2.6-8.5); Neutrophils Absolute Auto 4.8 K/mm3 (1.3-6.7); Neutrophils Percent Auto 54.3 % (45.5-73.1); Platelet Count Result 136 k/mm3 (150-375); Red Blood Count 4.98 M/mm3 (4.6-6.20); Red Cell Distribution Width 13.8 % (11.5-14.5); White Blood Count 8.8 K/mm3 (4.5-10.0)
[2020-06-12 06:32] LABS: Anion Gap 2 mmol/L (8-16); Blood Urea Nitrogen 22 mg/dL (9-20); Calcium 8.5 mg/dL (8.4-10.2); Carbon Dioxide 34 mmol/L (22-30); Chloride 104 mmol/L (98-107); Estimated CRCL calculation 84 ml/min; Estimated Glomerular Filt Rate > 60; Glucose 94 mg/dL (75-110); Potassium 4.3 mmol/L (3.4-5.0); Sodium 140 mmol/L (137-145)
[2020-06-12 07:01] LABS: Vancomycin Trough 11.9 ug/mL (10.0-20.0)
[2020-06-12] MEDS: NAPROXEN SODIUM 220 MG TABLET PO ×2 (07:21→17:04)
[2020-06-12 08:02] VITALS: PULSE 68
[2020-06-12] MEDS: VENLAFAXINE HCL XR 75 MG CAP.ER.24H PO (08:02)
[2020-06-12] MEDS: NEBIVOLOL HCL 5 MG TABLET PO (08:02)
[2020-06-12] MEDS: MAGNESIUM HYDROXIDE SUSP 30 ML UDC PO (08:02)
[2020-06-12] MEDS: TAMSULOSIN HCL 0.4 MG CAPSULE PO (08:02)
[2020-06-12] MEDS: ROSUVASTATIN 10 MG TABLET PO (08:02)
[2020-06-12] MEDS: LORATADINE 10 MG TABLET PO (08:03)
[2020-06-12] MEDS: MULTIVITAMINS /C LUTEIN (CENTRUM SILVER) TABLET *BKC 1 TAB PO (08:03)
[2020-06-12] MEDS: FAMOTIDINE 20 MG TABLET PO ×2 (08:03→20:50)
[2020-06-12] MEDS: DOCUSATE SODIUM 100 MG CAPSULE PO (08:03)
--- NOTE | 2020-06-12 10:03 | PM.PNORT ---
Progress Note: A&P Assessment and Plan (1) Surgical site infection: Code(s): T81.49XA - Infection following a procedure, other surgical site, initial encounter Status: Acute Assessment and Plan: POD #3: I&D Right Shoulder Surgical Site Infection Continue IV antibiotics. PICC line in place. Final wound cultures pending, NGTD. Appreciate ID recommendations. Plan for Vancomycin, 14- to 28-day course anticipated, Dr. Porter to follow outpatient. Repeat CRP/CBC in 1 week. Sling RUE. May remove for pendulum exercises/hygiene. Mepilex dressing to right shoulder today. To be changed in 7 days. Continue Pain control. Ice. Dispo: Home with Home Health for IV infusion pending arrangements and medical clearance Follow up in 2 weeks for suture removal. Subjective Subjective Date/Time Seen: 06/12/20 10:03 POD#3: INCISION AND DRAINAGE AND IRRIGATION AND DEBRIDEMENT RIGHT SHOULDER ABSCESS No new complaints. PICC line in place. Hopeful for discharge but concerned about needing IV infusion training. Review of Systems Review of Systems: All systems reviewed & are unremarkable except as noted in HPI and below Exam Const: General: comfortable and no acute distress Resp: Effort & Inspection: normal respiratory effort Cardio: Rate: regular rate Rhythm: regular rhythm GI: Inspection: non-distended GI Palp: Yes Soft to palpation and No Tenderness to palpation present (GI) Skin: Wounds: wounds noted (Incision right shoulder c/d/i) Neuro: General: gait normal Cognition (Neuro): normal cognition Motor exam (neuro): strength not 5/5 throughout and Abnormal motor strength present (RUE ) Extrem: Left upper extremity: shoulder/upper arm tenderness of the A-C joint and of the proximal humerus, swelling of the A-C joint and of the proximal humerus and ecchymosis; no deformity and no unsual warmth Objective Data Vital Signs Vital Signs: Vital Signs - 24 hr 06/11/20 15:02 06/11/20 20:00 06/12/20 06:00 Temperature 36.4 C L 36.2 C L 36.0 C L Pulse Rate 63 66 62 Respiratory Rate 16 18 16 Blood Pressure 142/79 H 153/83 H 152/89 H Pulse Oximetry 96 98 97 06/12/20 08:02 Temperature Pulse Rate 68 Respiratory Rate Blood Pressure Pulse Oximetry Intake/Output Intake/Output: Intake & Output 06/09/20 06/10/20 06/11/20 06/12/20 23:59 23:59 23:59 23:59 Intake Total 840 3170 2410 330 Output Total 270 2195 1400 Balance 990 261 8059 330 Meds/Results Medications: Active Medications Generic Name Dose Route Start Last Admin Trade Name Freq PRN Reason Stop Dose Admin Acetaminophen 650 mg 06/09/20 14:33 Acetaminophen 325 Mg Tablet PO Q6H PRN Pain Rated 1-3 Hydrocodone Bitart/Acetaminophen 1 tab 06/09/20 14:33 06/10/20 20:33 Hydrocodone/Acetaminophen (*Crx) 7.5-325 Mg Tablet PO 1 tab Q3H PRN Administration Pain Rated 4-6 Diazepam 5 mg 06/09/20 14:33 06/09/20 15:25 Diazepam (*Crx) 5 Mg Tablet PO 5 mg Q8H PRN Administration Muscle Spasm Docusate Sodium 100 mg 06/09/20 17:00 06/12/20 08:03 Docusate Sodium 100 Mg Capsule PO 100 mg BID MICAELA Administration Famotidine 20 mg 06/09/20 21:00 06/12/20 08:03 Famotidine 20 Mg Tablet PO 20 mg Q12HR MICAELA Administration Vancomycin HCl 2,000 mg in 500 mls @ 250 mls/hr 06/11/20 12:00 06/12/20 07:20 Vancomycin 2,000 Mg/D5w 500 Ml IVPB 250 mls/hr Q18H MICAELA Administration Loratadine 10 mg 06/10/20 09:00 06/12/20 08:03 Loratadine 10 Mg Tablet PO 10 mg QAM MICAELA Administration Magnesium Hydroxide 30 ml 06/09/20 14:33 06/12/20 08:02 Magnesium Hydroxide Susp 30 Ml Udc PO 30 ml BID PRN Administration Constipation Morphine Sulfate 3 mg 06/09/20 14:33 Morphine Sulfate (*Crx) 4 Mg/Ml Inj IV PUSH Q3H PRN Pain Rated 7-10 Multivitamins/Minerals 1 tab 06/10/20 09:00 06/12/20 08:03 Multivitamins /C Lutein (Centrum Silver) Tablet *Bkc PO 1 tab
--- NOTE | 2020-06-12 11:11 | PM.IMPN ---
Progress Note: A&P Assessment and Plan (1) Wound of right shoulder: Code(s): S41.001A - Unspecified open wound of right shoulder, initial encounter Status: Acute Assessment and Plan: Postoperative day 3, status post incision drainage as well as irrigation and debridement of right shoulder abscess by Dr. Elmore. He tolerated the procedure well and pain is well controlled. Wound care and pain control deferred to Dr. Elmore. Continue IV vancomycin for anticipated 14-28 day course. PICC line placed 06/11. Awaiting insurance approval for home IV infusions. Care coordination is following. Wound culture from right shoulder and blood cultures are pending. No microorganisms seen on Gram stain. Aerobic wound culture negative. Preliminary anaerobic culture with no anaerobes isolated. Blood cultures with no growth to date. Final cultures will be monitored. (2) Essential hypertension: Code(s): I10 - Essential (primary) hypertension Status: Acute Assessment and Plan: Blood pressures were reviewed and have been fairly well controlled. Last BP 152/89. Continue nebivolol (3) Obstructive sleep apnea: Code(s): G47.33 - Obstructive sleep apnea (adult) (pediatric) Status: Acute Assessment and Plan: Patient no longer uses CPAP. Discussed the importance of use especially as he is frequently tired. (4) Mixed hyperlipidemia: Code(s): E78.2 - Mixed hyperlipidemia Status: Acute Assessment and Plan: Continue rosuvastatin. LFTs reviewed and appropriate for continuation of statin therapy. (5) Benign prostatic hyperplasia: Code(s): N40.0 - Benign prostatic hyperplasia without lower urinary tract symptoms Status: Acute Assessment and Plan: Does not seem well controlled as patient reports he gets up to urinate 4 or 5 times a night. he endorses hesitancy and weak stream. He states this has been ongoing for many years and often does not get more than 3-4 hours of sleep at a time. At his request, I will refer him to urology. He may benefit from an additional agent in addition to his home tamsulosin which will be continued. (6) Anxiety: Code(s): F41.9 - Anxiety disorder, unspecified Status: Acute Assessment and Plan: No acute issues. Mood is stable. Continue venlafaxine. Additional Plan Hopeful discharge this afternoon pending insurance approval for IV infusions. Hospitalist service will sign off at this time. Please call for any further questions or should need arise for additional medical evaluation. Thank you for allowing me to participate in care of this patient. Subjective Date/time seen: 06/12/20 11:11 Interval history: Date of service: 06/12/2020 Thomas Branham is an extremely pleasant 64-year-old male with history of hypertension, hyperlipidemia, JESS, BPH, anxiety who is seen in follow-up for a postoperative surgical wound abscess of the right shoulder, now s/p incision and drainage as well as irrigation and debridement on 06/09/20. he is doing well today. He has no shoulder pain. No purulence, drainage or other issues at the incision site. He had a regular bowel movement this morning. Appetite is good. No nausea or vomiting. No chest pain, shortness of breath, cough, dizziness, lightheadedness fevers, chills. He is hopeful for discharge this afternoon and is eager to return home. His is at the bedside and present during interview and examination. Review of Systems Review of Systems: All systems reviewed & are unremarkable except as noted in HPI and below Exam Narrative: Exam Narrative: Mr. Branham is an obese, well-appearing 64-year-old male who is lying semi recumbent in bed. He appears comfortable and is in NARD. Neuro: awake, alert and oriented x4, speech clear, no focal neuro deficits noted HEENMT: normocephalic, atraumatic, EOMI, sclerae anicteric, moist oral mucosa, t
[2020-06-12 14:00] VITALS: BP 142/92; PULSE 70; RESP 16; TEMP 36.9; O2SAT 98
[2020-06-12 20:00] VITALS: BP 180/88; PULSE 71; RESP 16; TEMP 36.1; O2SAT 97
[2020-06-12] MEDS: ZOLPIDEM TARTRATE (*CRX) 5 MG TABLET 10 MG PO (20:51)
[2020-06-13] MEDS: CENTRAL LINE FLUSH 10 ML IV PUSH ×2 (05:26→13:21)
[2020-06-13 06:00] VITALS: BP 162/82; PULSE 57; RESP 16; TEMP 36.1; O2SAT 97
[2020-06-13 08:17] VITALS: PULSE 76
[2020-06-13] MEDS: MULTIVITAMINS /C LUTEIN (CENTRUM SILVER) TABLET *BKC 1 TAB PO (08:17)
[2020-06-13] MEDS: NAPROXEN SODIUM 220 MG TABLET PO ×2 (08:17→17:40)
[2020-06-13] MEDS: NEBIVOLOL HCL 5 MG TABLET PO (08:17)
[2020-06-13] MEDS: ROSUVASTATIN 10 MG TABLET PO (08:17)
[2020-06-13] MEDS: VENLAFAXINE HCL XR 75 MG CAP.ER.24H PO (08:17)
[2020-06-13] MEDS: LORATADINE 10 MG TABLET PO (08:17)
[2020-06-13] MEDS: TAMSULOSIN HCL 0.4 MG CAPSULE PO (08:17)
[2020-06-13] MEDS: DOCUSATE SODIUM 100 MG CAPSULE PO ×2 (08:19→17:44)
[2020-06-13] MEDS: FAMOTIDINE 20 MG TABLET PO (08:19)
--- NOTE | 2020-06-13 13:20 | PM.PNORT ---
Progress Note: A&P Assessment and Plan (1) Surgical site infection: Code(s): T81.49XA - Infection following a procedure, other surgical site, initial encounter Status: Acute Assessment and Plan: POD #4: I&D Right Shoulder Surgical Site Infection Continue IV antibiotics. PICC line in place. Final wound cultures with scant growth of Propionibacterium acnes. Appreciate ID recommendations. Plan for Vancomycin, 14- to 28-day course anticipated, Dr. Porter to follow outpatient. Repeat CRP/CBC in 1 week as ordered by Dr. Elmore. Hussein RUCandelario. May remove for pendulum exercises/hygiene. Mepilex dressing to right shoulder. To be changed in 7 days. aware. Continue Pain control. Ice. Dispo: Home with Home Health for IV infusion pending arrangements and medical clearance Follow up in 2 weeks for suture removal. Subjective Subjective Date/Time Seen: 06/13/20 13:20 POD#4: INCISION AND DRAINAGE AND IRRIGATION AND DEBRIDEMENT RIGHT SHOULDER ABSCESS No new complaints. PICC line in place. Anxious for discharge. Awaiting final home infusion orders. Review of Systems Review of Systems: All systems reviewed & are unremarkable except as noted in HPI and below Exam Const: General: comfortable and no acute distress Resp: Effort & Inspection: normal respiratory effort Cardio: Rate: regular rate Rhythm: regular rhythm GI: Inspection: non-distended GI Palp: Yes Soft to palpation and No Tenderness to palpation present (GI) Skin: Wounds: wounds noted (Incision right shoulder c/d/i) Neuro: General: gait normal Cognition (Neuro): normal cognition Motor exam (neuro): strength not 5/5 throughout and Abnormal motor strength present (RUE ) Extrem: Left upper extremity: shoulder/upper arm tenderness of the A-C joint and of the proximal humerus, swelling of the A-C joint and of the proximal humerus and ecchymosis; no deformity and no unsual warmth Objective Data Vital Signs Vital Signs: Vital Signs - 24 hr 06/12/20 14:00 06/12/20 20:00 06/13/20 06:00 Temperature 36.9 C 36.1 C L 36.1 C L Pulse Rate 70 71 57 L Respiratory Rate 16 16 16 Blood Pressure 142/92 H 180/88 H 162/82 H Pulse Oximetry 98 97 97 06/13/20 08:17 Temperature Pulse Rate 76 Respiratory Rate Blood Pressure Pulse Oximetry Intake/Output Intake/Output: Intake & Output 06/10/20 06/11/20 06/12/20 06/13/20 23:59 23:59 23:59 23:59 Intake Total 3170 2410 1070 1220 Output Total 2195 1400 Balance 975 1010 1070 1220 Meds/Results Medications: Active Medications Generic Name Dose Route Start Last Admin Trade Name Freq PRN Reason Stop Dose Admin Acetaminophen 650 mg 06/09/20 14:33 Acetaminophen 325 Mg Tablet PO Q6H PRN Pain Rated 1-3 Hydrocodone Bitart/Acetaminophen 1 tab 06/09/20 14:33 06/10/20 20:33 Hydrocodone/Acetaminophen (*Crx) 7.5-325 Mg Tablet PO 1 tab Q3H PRN Administration Pain Rated 4-6 Diazepam 5 mg 06/09/20 14:33 06/09/20 15:25 Diazepam (*Crx) 5 Mg Tablet PO 5 mg Q8H PRN Administration Muscle Spasm Docusate Sodium 100 mg 06/09/20 17:00 06/13/20 08:19 Docusate Sodium 100 Mg Capsule PO 100 mg BID MICAELA Administration Famotidine 20 mg 06/09/20 21:00 06/13/20 08:19 Famotidine 20 Mg Tablet PO 20 mg Q12HR MICAELA Administration Vancomycin HCl 2,000 mg in 500 mls @ 250 mls/hr 06/11/20 12:00 06/13/20 02:06 Vancomycin 2,000 Mg/D5w 500 Ml IVPB Infused Q18H MICAELA Infusion Loratadine 10 mg 06/10/20 09:00 06/13/20 08:17 Loratadine 10 Mg Tablet PO 10 mg QAM MICAELA Administration Magnesium Hydroxide 30 ml 06/09/20 14:33 06/12/20 08:02 Magnesium Hydroxide Susp 30 Ml Udc PO 30 ml BID PRN Administration Constipation Morphine Sulfate 3 mg 06/09/20 14:33 Morphine Sulfate (*Crx) 4 Mg/Ml Inj IV PUSH Q3H PRN Pain Rated 7-10 Multivitamins/Minerals 1 tab 06/10/20 09:00 06/13/20 08:17 Multivitamins /C Lutein (Cent
[2020-06-13 14:19] VITALS: BP 165/99; PULSE 78; RESP 16; TEMP 36.4; O2SAT 96
--- NOTE | 2020-06-13 14:23 | PC.NURSE ---
Observed patient care and reviewed charting for [facility] student nurse Cayla Velarde [phone]
--- NOTE | 2020-06-13 16:13 | PM.DS ---
DS: Admitting Diagnosis Admitting Diagnosis Admitting Diagnosis: Right shoulder surgical site infection DS: Discharge Diagnosis Discharge Diagnosis (1) Surgical site infection: Code(s): T81.49XA - Infection following a procedure, other surgical site, initial encounter Status: Acute Assessment and Plan: POD #4: I&D Right Shoulder Surgical Site Infection Continue IV antibiotics. PICC line in place. Final wound cultures with scant growth of Propionibacterium acnes. Appreciate ID recommendations. Plan for Vancomycin, 14- to 28-day course anticipated, Dr. Mc to follow outpatient. Repeat CRP/CBC in 1 week as ordered by Dr. Elmore. Sling RUE. May remove for pendulum exercises/hygiene. Mepilex dressing to right shoulder. To be changed in 7 days. aware. Continue Pain control. Ice. Dispo: Home with Home Health for IV infusion pending arrangements and medical clearance Follow up in 2 weeks for suture removal. DS: Summary Hospital Course Reason for hospitalization: right surgical site infection Hospital Course: 64-year-old male admitted status post I&D of right shoulder status post right rotator cuff repair. Patient admitted status post surgical intervention by Dr. Elmore for postoperative IV antibiotics and infectious disease consult. Dr. cm with Infectious Disease was consulted and recommended vancomycin through June 22. Patient will be discharged home with IV antibiotics and a PICC line is in place. Patient does have sling in place as well. He will resume formal physical therapy for passive range of motion for 6 weeks. Pain controlled throughout hospitalization. Lab stable. Wound culture reveals P.Acnes. Blood cultures with no growth to date, obtained on June 09. patient to continue IV antibiotics under the direction of Dr. mc. He will follow up in our office in 2 weeks for suture removal. Dressing in place. Dressing will be changed in 7 days by his . at bedside and verbalized understanding in regards to dressing changes and IV infusion care. Status at Discharge Functional status at discharge: uses cane/walker Overall status at discharge: patient is progressing back to baseline Time Spent with Patient Time attestation: Total time spent providing and/or coordinating discharge services: Exam Const: General: comfortable and no acute distress Resp: Effort & Inspection: normal respiratory effort Cardio: Rate: regular rate Rhythm: regular rhythm GI: Inspection: non-distended GI Palp: Yes Soft to palpation and No Tenderness to palpation present (GI) Skin: Wounds: wounds noted (Incision right shoulder c/d/i) Neuro: General: gait normal Cognition (Neuro): normal cognition Motor exam (neuro): strength not 5/5 throughout and Abnormal motor strength present (RUE ) Extrem: Left upper extremity: shoulder/upper arm tenderness of the A-C joint and of the proximal humerus, swelling of the A-C joint and of the proximal humerus and ecchymosis; no deformity and no unsual warmth DS: Data Data Completed and Pending Labs on day of discharge: Preliminary micro results at discharge 06/09/20 11:43 Anaerobic Culture - Preliminary Shoulder Right Proprionibacterium acnes 06/09/20 17:12 Blood Culture - Preliminary Blood 06/09/20 17:12 Blood Culture - Preliminary Blood Discharge Plan Discharge Attending physician on discharge: Naun Elmore Consulting providers: Bea Camacho ; Dez Mc ; Madalyn Perez V. Discharging Clinician: Estela Brody Anticipated Discharge Date/Time: 06/12/20 15:00 Patient Disposition: Home Health Service Activity: may shower Diet: as tolerated Wound Care Instructions: follow printed instructions Discharge Instructions: Orthopedic Recommendations Dr. Naun Elmore [phone] No weight bearing right arm. Sling. May remove for gentle pendulum exercises, hygiene purposes. You may shower with
[2020-06-13 17:31] LABS: Vancomycin Trough 11.8 ug/mL (10.0-20.0)
== END 2020-06-13 20:06 | disposition home health service (06) | DRG 857 ==
LOC: ANH3MED 15:45
PROVIDERS: Internal Medicine Infectious Disease; Physician Assistant; Admitting Provider Orthopaedic Surgery; PCP Family Medicine; Visit Provider Nurse Practitioner Family
PROC: 0MB10ZZ Excision of Right Shoulder Bursa and Ligament, Open Approach (ICD-10-PCS; principal; 2020-06-09 10:00)
DX: T81.49XA Infection following a procedure, other surgical site, initial encounter (principal); Z68.41 Body mass index [BMI] 40.0-44.9, adult; B96.89 Other specified bacterial agents as the cause of diseases classified elsewhere; G47.33 Obstructive sleep apnea (adult) (pediatric); E78.2 Mixed hyperlipidemia; N40.0 Benign prostatic hyperplasia without lower urinary tract symptoms; F41.9 Anxiety disorder, unspecified; E78.5 Hyperlipidemia, unspecified; I10 Essential (primary) hypertension; E66.9 Obesity, unspecified; Z96.642 Presence of left artificial hip joint; Z90.49 Acquired absence of other specified parts of digestive tract; Z85.828 Personal history of other malignant neoplasm of skin
CPT/HCPCS: 36415; 36569; 80048; 80076; 80202; 85025; 85027; 86140; 87040; 87070; 87075; 87076; 87205; A9270; C1751; C9803; J0330; J1100; J1885; J2250; J2370; J2405; J2704; J3010; J3370; J7120; U0003; U0005

== ENCOUNTER → 2020-07-24 07:56 | Outpatient (REF) | payer MEDICARE, BC, OTHER, SELFPAY | LOC: ANHLAB 07:56 | PROVIDERS: PCP Family Medicine; Visit Provider Nurse Practitioner | DX: C44.219 Basal cell carcinoma of skin of left ear and external auricular canal (principal) | CPT/HCPCS: 88305 ==

== ENCOUNTER 2020-07-31 08:22 | Outpatient (CLI) | payer MEDICARE, BC, OTHER, SELFPAY ==
[2020-07-31 08:50] LABS: Basophils Percent Auto 0.4 % (0.2-1.2); Eosinophils Absolute Auto 0.3 K/mm3 (0-0.3); Eosinophils Percent Auto 3.3 % (0-4.4); Hematocrit 46.7 % (42.0-52.0); Hemoglobin 15.5 g/dL (14.0-18.0); Immature Granulocyte Absolute 0.04 K/mm3 (0.00-0.031); Immature Granulocyte Percent A 0.4 % (0-0.5); Lymphocytes Absolute Auto 2.67 K/mm3 (0.9-3.2); Lymphocytes Percent Auto 26.5 % (18.3-44.2); Mean Corpuscular HGB Conc 33.2 g/dl (32-36); Mean Corpuscular Hemoglobin 29.6 pg (26-34); Mean Corpuscular Volume 89.3 fl (80-100); Mean Platelet Volume 12.3 fl (7.4-10.4); Monocytes Absolute Auto 0.6 K/mm3 (0.1-0.6); Monocytes Percent Auto 5.6 % (2.6-8.5); Neutrophils Absolute Auto 6.4 K/mm3 (1.3-6.7); Neutrophils Percent Auto 63.8 % (45.5-73.1); Platelet Count Result 119 k/mm3 (150-375); Red Blood Count 5.23 M/mm3 (4.6-6.20); Red Cell Distribution Width 14.2 % (11.5-14.5); White Blood Count 10.1 K/mm3 (4.5-10.0)
[2020-07-31 14:17] LABS: Folic Acid > 20.0 ng/mL (2.76->20)
== END 2020-07-31 08:23 | disposition home or self-care (01) ==
PROVIDERS: PCP Family Medicine; Visit Provider Internal Medicine Hematology & Oncology
DX: D69.59 Other secondary thrombocytopenia (principal)
CPT/HCPCS: 36415; 82607; 82746; 85025

== ENCOUNTER → 2020-10-16 07:40 | Outpatient (REF) | payer MEDICARE, BC, OTHER, SELFPAY | LOC: ANHLAB 07:40 | PROVIDERS: PCP Family Medicine; Visit Provider Nurse Practitioner | DX: C44.219 Basal cell carcinoma of skin of left ear and external auricular canal (principal) | CPT/HCPCS: 88305; 88331 ==

== ENCOUNTER → 2020-10-31 10:20 | Outpatient (CLI) | payer MEDICARE, OTHER, SELFPAY ==
--- NOTE | ~2020-10-31 | XR_ITS ---
EXAMINATION: XR hip BI wo pelvis INDICATION: Bilateral hip pain TECHNIQUE: Two views of each hip are obtained. COMPARISON: 04/28/2019 FINDINGS: There are changes of left total hip arthroplasty. There is no evidence of hardware failure or loosening. There is moderate to severe osteoarthritis of the right hip. Bone alignment is normal. There is no fracture. The soft tissues are unremarkable. IMPRESSION: 1. Moderate to severe osteoarthritis of the right hip and changes of left total hip arthroplasty with out acute osseous abnormality. Reviewed, dictated and finalized at location B. IMPRESSION: 1. Moderate to severe osteoarthritis of the right hip and changes of left total hip arthroplasty without acute osseous abnormality.
== END ==
PROVIDERS: PCP Family Medicine; Visit Provider Nurse Practitioner Family
DX: M16.11 Unilateral primary osteoarthritis, right hip (principal)
CPT/HCPCS: 73521

== ENCOUNTER 2021-04-03 08:51 | Outpatient (CLI) | payer MEDICARE, BC, OTHER, SELFPAY ==
[2021-04-03 09:07] LABS: Basophils Absolute Auto 0.1 K/mm3 (0.0-0.1); Basophils Percent Auto 0.7 % (0.2-1.2); Eosinophils Absolute Auto 0.2 K/mm3 (0-0.3); Eosinophils Percent Auto 3.1 % (0-4.4); Hematocrit 48.6 % (42.0-52.0); Hemoglobin 15.5 g/dL (14.0-18.0); Immature Granulocyte Absolute 0.02 K/mm3 (0.00-0.031); Immature Granulocyte Percent A 0.3 % (0-0.5); Lymphocytes Absolute Auto 2.65 K/mm3 (0.9-3.2); Lymphocytes Percent Auto 35.3 % (18.3-44.2); Mean Corpuscular HGB Conc 31.9 g/dl (32-36); Mean Corpuscular Hemoglobin 31.1 pg (26-34); Mean Corpuscular Volume 97.6 fl (80-100); Mean Platelet Volume 12.5 fl (7.4-10.4); Monocytes Absolute Auto 0.6 K/mm3 (0.1-0.6); Monocytes Percent Auto 7.3 % (2.6-8.5); Neutrophils Percent Auto 53.3 % (45.5-73.1); Platelet Count Result 128 k/mm3 (150-375); Red Blood Count 4.98 M/mm3 (4.6-6.20); Red Cell Distribution Width 13.6 % (11.5-14.5); White Blood Count 7.5 K/mm3 (4.5-10.0)
== END 2021-04-03 08:52 | disposition home or self-care (01) ==
LOC: ANHLAB 08:56
PROVIDERS: PCP Family Medicine; Visit Provider Internal Medicine Hematology & Oncology
DX: D69.59 Other secondary thrombocytopenia (principal)
CPT/HCPCS: 36415; 85025

== ENCOUNTER 2021-05-15 07:37 | Outpatient (CLI) | payer MEDICARE, BC, OTHER, SELFPAY ==
--- NOTE | 2021-05-23 13:28 | WPDSLEEPSTUD ---
Sleep Study Date of Study: 05/15/21 Ordering Provider: Omer Davies MD Interpreting Physician: Janet Daley MD Sleep Study Type: Split Polysomnogram Height: 1.75 m Weight: 136.078 kg Body Mass Index: 44.3 Neck Circumference (inches): 19.5 [place]: 8 Reason for Sleep Study known obsructive sleep apnea, has not used CPAP for years Sleep History Thomas Branham, goes by Hardy, is a 65-year-old male who goes has a history of obstructive sleep apnea. He has not used his device for years. His notes that he stops breathing at night and this has been going on for 20 years. his sleep questionnaire shows that he had difficulty wearing a mask. His sister wears a mask and encouraged him to be retested because they are so many different choices now. He wakes up during the night, has excessive daytime sleepiness and a difficult time waking in the morning. He frequently awakens from sleep feeling short of breath. He occasionally awakens at night with heartburn, belching or coughing. He occasionally snores and occasionally has loud enough that others complain. He occasionally has trouble sleeping with a cold. He frequently wakes up gasping for breath at night. He occasionally has breathing problems at night observed by others. He does not sweat excessively at night. He rarely notices his heart pounding or beating irregularly at night. He frequently falls asleep during the day, never involuntarily and he never falls asleep while driving. He does not have loss of muscle tone with strong emotion. He occasionally has daytime difficulties due to excessive sleepiness. He does not feel paralyzed on waking or falling asleep. He frequently has vivid dreamlike scenes upon awakening or falling asleep. He rarely feels afraid to go to sleep. He occasionally has nightmares, occasionally remembers his dreams and occasionally has racing thoughts. He rarely feels sad or depressed. He rarely has anxiety. He occasionally has muscular tension and occasionally notices parts of his body jerking. He does not know if he kicks at night or if he does not. He rarely has aching and crawling feelings in his legs and rarely has any kind of leg pain at night. He does not have morning jaw pain. He does not grind his teeth during sleep. He constantly is bothered by pain during the day, and occasionally he is awakened by pain at night. He frequently wakes up feeling stiff in the morning, constantly wakes up with sore or achy muscles and pain in the neck and spine. He has fatigue, sexual problems, memory problems and he takes antacids regularly. Normal bedtime is 10:30 p.m. falling asleep quickly, waking 3-6 times at night to go to the bathroom. He is able to fall asleep immediately on return to his bed. He wakes the morning at 7:00 a.m.. His weekend schedule is the same. He takes naps in the afternoon or evening. A short nap is not refreshing. He is drowsy in the morning for 3 hours or longer after waking. He feels better in the evening compared other times of the day. Habits: No tobacco. Caffeine 2 servings a day. Social alcohol. No recreational drugs. [facility] Past Medical History Medical History Anxiety Benign prostatic hyperplasia BMI 40.0-44.9, adult Claustrophobia Essential hypertension History of basal cell carcinoma Mixed hyperlipidemia Morbid (severe) obesity due to excess calories Obstructive sleep apnea Patient does not use CPAP. Surgical site infection Surgical History Surgical History History of basal cell carcinoma excision From the face and lower extremity. History of incision and drainage (~06/09/20) Right shoulder wound infection. History of laparoscopic cholecystectomy (~08/2003) History of repair of right rotator cuff (~05/03/20) History of total left hip arthroplasty (~09/2012) History of vasectomy History of ventra
[2021-05-23 13:51] VITALS: BMI 44.3
== END 2021-05-16 07:37 | disposition home or self-care (01) ==
LOC: ANHCSM 07:37
PROVIDERS: PCP Family Medicine; Visit Provider Family Medicine
DX: G47.33 Obstructive sleep apnea (adult) (pediatric) (principal)
CPT/HCPCS: 95811

== ENCOUNTER → 2021-09-04 12:06 | Outpatient (REF) | payer MEDICARE, BC, OTHER, SELFPAY | LOC: ANHLAB 12:06 | PROVIDERS: PCP Family Medicine; Visit Provider Nurse Practitioner | DX: L85.8 Other specified epidermal thickening (principal) | CPT/HCPCS: 88305 ==

== ENCOUNTER 2022-01-04 09:08 | Outpatient (CLI) | payer MEDICARE, OTHER, SELFPAY ==
--- NOTE | ~2022-01-04 | US_ITS ---
EXAMINATION: US carotid duplex BI DATE: 01/04/2022 10:01 INDICATION: Cervicalgia TECHNIQUE: Grayscale, color Doppler, and pulsed Doppler images of the cervical carotid arteries were obtained. The degree of vessel stenosis is placed in one of the following categories: normal, <50%, 5 0-69%, >=70% but less than near-occlusion, near-occlusion, or total occlusion. Note that percent sten osis relative to normal distal artery lumen diameter is indirectly measured from velocity measurement s as described by Gilberto, et al. Radiology 2003; 229:340-346. Notes: Normal: Peak systolic velocity <125 centimeters/sec and no plaque <50%. Peak systolic velocity <125 ( EDV <40; ICA/CCA PSV ratio <2.0; used these factors only a tandem lesions or low cardiac output or co ntralateral disease) 50-69 %: PSV 125-230 (EDV 40-100; ratio 2-4) >= 70% but less than near occlusion: PSV greater than 230 (EDV > 100; ratio> 4.0) Near Occlusion: PSV that is variable; markedly narrowed lumen Occlusion: Absent flow on color/spectral Doppler and no lumen on contreras scale. COMPARISON: Ultrasound dated 04/15/2017. FINDINGS: RIGHT: The right common carotid artery (CCA) peak systolic velocity (PSV) is 69 cm/s. The right internal car otid artery (ICA) PSV is 75 cm/s. The right ICA end-diastolic velocity (EDV) is 16 cm/s. The right IC A/CCA PSV ratio is 1.1. The external carotid artery (ECA) PSV is 87 cm/s. There is antegrade flow in the right vertebral artery. LEFT: The left CCA PSV is 82 cm/s. The left ICA PSV is 70 cm/s. The left ICA EDV is 22 cm/s. The left ICA/C CA PSV ratio is 0.9. The ECA PSV is 79 cm/s. There is antegrade flow in the left vertebral artery. IMPRESSION: 1. Less than 50% stenosis in the right internal carotid artery by sonographic criteria. 2. Less than 50% stenosis in the left internal carotid artery by sonographic criteria. Reviewed, dictated and finalized at location A. IMPRESSION: 1. Less than 50% stenosis in the right internal carotid artery by sonographic c terrenceeria. 2. Less than 50% stenosis in the left internal carotid artery by sonographic cr jeniffer.
== END 2022-01-04 09:09 | disposition home or self-care (01) ==
PROVIDERS: PCP Family Medicine; Visit Provider Nurse Practitioner Family
DX: E78.2 Mixed hyperlipidemia (principal); I10 Essential (primary) hypertension; M54.2 Cervicalgia; I65.23 Occlusion and stenosis of bilateral carotid arteries
CPT/HCPCS: 93880

== ENCOUNTER 2022-03-05 07:00 | Outpatient (NON) | payer MEDICARE, OTHER, SELFPAY | END 2022-03-05 07:01 | disposition home or self-care (01) | LOC: ANHLAB 03-07 14:01 | PROVIDERS: PCP Family Medicine; Visit Provider Nurse Practitioner | DX: C44.519 Basal cell carcinoma of skin of other part of trunk (principal) | CPT/HCPCS: 88305 ==

== ENCOUNTER 2022-04-02 07:00 | Outpatient (NON) | payer MEDICARE, OTHER, SELFPAY | END 2022-04-03 14:01 | disposition home or self-care (01) | PROVIDERS: PCP Family Medicine; Visit Provider Nurse Practitioner | DX: C44.91 Basal cell carcinoma of skin, unspecified (principal) | CPT/HCPCS: 88305 ==

== ENCOUNTER 2022-04-04 09:58 | Outpatient (CLI) | payer MEDICARE, OTHER, SELFPAY ==
[2022-04-04 10:11] LABS: Basophils Percent Auto 0.4 % (0.2-1.2); Eosinophils Absolute Auto 0.1 K/mm3 (0-0.3); Eosinophils Percent Auto 1.4 % (0-4.4); Hematocrit 50.4 % (42.0-52.0); Hemoglobin 16.5 g/dL (14.0-18.0); Immature Granulocyte Absolute 0.01 K/mm3 (0.00-0.031); Immature Granulocyte Percent A 0.1 % (0-0.5); Lymphocytes Absolute Auto 2.42 K/mm3 (0.9-3.2); Lymphocytes Percent Auto 31.4 % (18.3-44.2); Mean Corpuscular HGB Conc 32.7 g/dl (32-36); Mean Corpuscular Hemoglobin 30.5 pg (26-34); Mean Corpuscular Volume 93.2 fl (80-100); Mean Platelet Volume 12.7 fl (7.4-10.4); Monocytes Absolute Auto 0.6 K/mm3 (0.1-0.6); Monocytes Percent Auto 7.4 % (2.6-8.5); Neutrophils Absolute Auto 4.6 K/mm3 (1.3-6.7); Neutrophils Percent Auto 59.3 % (45.5-73.1); Platelet Count Result 125 k/mm3 (150-375); Red Blood Count 5.41 M/mm3 (4.6-6.20); Red Cell Distribution Width 13.2 % (11.5-14.5); White Blood Count 7.7 K/mm3 (4.5-10.0)
[2022-04-04 10:16] LABS: Blood Urea Nitrogen 22 mg/dL (8-26); Carbon Dioxide 29 mmol/L (22-30); Chloride 102 mmol/L (98-109); Estimated Glomerular Filt Rate > 60; Glucose 79 mg/dL (70-105); Ionized Calcium (POC) 1.15 mmol/L (1.11-1.31); Potassium 3.8 mmol/L (3.5-4.9); Sodium 142 mmol/L (138-146)
[2022-04-04 10:55] LABS: Alanine Aminotransferase 30 U/L (6-50); Albumin Level 4.1 g/dL (3.5-5.1); Alkaline Phosphatase 95 U/L (38-126); Anion Gap 7 mmol/L (8-16); Aspartate Amino Transferase 35 U/L (17-59); Bilirubin,Total 0.7 mg/dL (0.2-1.3); Blood Urea Nitrogen 21 mg/dL (9-20); Calcium 8.7 mg/dL (8.4-10.2); Carbon Dioxide 28 mmol/L (22-30); Chloride 105 mmol/L (98-107); Estimated Glomerular Filt Rate > 60; Glucose 79 mg/dL (65-110); Potassium 3.8 mmol/L (3.4-5.0); Sodium 140 mmol/L (137-145)
== END 2022-04-04 09:59 | disposition home or self-care (01) ==
LOC: ANHLAB 09:59
PROVIDERS: PCP Family Medicine; Visit Provider Internal Medicine Hematology & Oncology
DX: D69.59 Other secondary thrombocytopenia (principal)
CPT/HCPCS: 36415; 80047; 80053; 85025

== ENCOUNTER 2022-09-05 12:15 | Outpatient (NON) | payer MEDICARE, OTHER, SELFPAY | END 2022-09-05 12:16 | disposition home or self-care (01) | LOC: ANHLAB 09-06 12:17 | PROVIDERS: PCP Family Medicine; Visit Provider Nurse Practitioner | DX: D49.2 Neoplasm of unspecified behavior of bone, soft tissue, and skin (principal) | CPT/HCPCS: 88305 ==

== ENCOUNTER 2023-05-08 08:15 | Outpatient (CLI) | payer MEDICARE, OTHER, SELFPAY ==
[2023-05-08 08:30] LABS: Basophils Percent Auto 0.4 % (0.2-1.2); Eosinophils Absolute Auto 0.2 K/mm3 (0-0.3); Eosinophils Percent Auto 2.6 % (0-4.4); Hematocrit 48.4 % (42.0-52.0); Hemoglobin 16.2 g/dL (14.0-18.0); Immature Granulocyte Absolute 0.02 K/mm3 (0.00-0.031); Immature Granulocyte Percent A 0.3 % (0-0.5); Lymphocytes Percent Auto 31.3 % (18.3-44.2); Mean Corpuscular HGB Conc 33.5 g/dl (32-36); Mean Corpuscular Hemoglobin 30.2 pg (26-34); Mean Corpuscular Volume 90.3 fl (80-100); Mean Platelet Volume 12.1 fl (7.4-10.4); Monocytes Absolute Auto 0.5 K/mm3 (0.1-0.6); Monocytes Percent Auto 6.6 % (2.6-8.5); Neutrophils Absolute Auto 4.7 K/mm3 (1.3-6.7); Neutrophils Percent Auto 58.8 % (45.5-73.1); Platelet Count Result 123 k/mm3 (150-375); Red Blood Count 5.36 M/mm3 (4.6-6.20); Red Cell Distribution Width 13.4 % (11.5-14.5)
== END 2023-05-08 08:16 | disposition home or self-care (01) ==
LOC: ANHLAB 08:18
PROVIDERS: PCP Family Medicine; Visit Provider Internal Medicine Hematology & Oncology
DX: D69.59 Other secondary thrombocytopenia (principal)
CPT/HCPCS: 36415; 85025

== ENCOUNTER 2023-09-19 10:21 | Outpatient (CLI) | payer MEDICARE, OTHER, SELFPAY ==
--- NOTE | ~2023-09-19 | XR_ITS ---
AP view of the pelvis and AP and lateral view of the bilateral hips Clinical history: Pain Findings: No acute fracture or dislocation is seen. Left hip arthroplasty in place. No hardware compl ication is evident. There is moderate degenerative change of the right hip joint. Soft tissues are un remarkable. Impression: No acute abnormality. Moderate right hip joint osteoarthritis. Left hip arthroplasty. Reviewed, dictated and finalized at location . Impression: No acute abnormality. Moderate right hip joint osteoarthritis. Left hip arthroplasty.
== END 2023-09-19 10:22 ==
PROVIDERS: PCP Family Medicine; Visit Provider Nurse Practitioner Family
DX: M25.552 Pain in left hip (principal); M16.11 Unilateral primary osteoarthritis, right hip
CPT/HCPCS: 73521

== ENCOUNTER 2023-10-08 14:27 | Outpatient (CLI) | payer MEDICARE, OTHER, SELFPAY ==
--- NOTE | 2023-10-08 14:30 | ECHO_ITS ---
Patient Info Name: Thomas Branham Age: 68 years : 1955 Gender: Male Ht: 69 in Wt: 303 lbs BSA: 2.66 m2 HR: 76 bpm BP: 126 / 84 mmHg Technical Quality: Poor Exam Date: 10/08/2023 2:58 PM Exam Location: Echo Lab Patient Status: Outpatient Admit Date: 10/08/2023 Staff Ordering Physician: Serina Brower [employer] Supervisor: Lenny Tai RDCS Attending Provider: Serina Brower Referring Physician: Leonarda WINKLER; Exam Type: CA echo dop color flow w con Study Info Indications G47.33 - Obstructive sleep apnea Complete two-dimensional, color flow and Doppler transthoracic echocardiogram is performed with contrast to opacify the left ventricle and to improve the deliniation of the left ventricle endocardial borders. Contrast/Agitated Saline Contrast/Ag. Saline: Definity Amount: 4.00 ml Existing IV Access: Yes Site Condition: IV removed Reason for Poor Study: patient body habitus Summary 1. Definity contrast administered improved wall motion interpretation. 2. Left ventricular chamber dimension is normal. 3. Left ventricular systolic function is normal, estimated at 55-60%. 4. The left ventricular diastolic function is abnormal. 5. E/e' 12 is mildly elevated. 6. Left atrial chamber dimension is mildly enlarged. 7. The aortic valve is not well visualized. Cannot determine number of aortic valve leaflets. 8. There is moderate aortic valve sclerosis. 9. There is moderate to severe aortic valve stenosis based on a peak velocity of 355.35 cm/s, mean gradient of 31 mmHg, and aortic valve area of 0.92 cm2. 10. No pulmonary hypertension, estimated pulmonary arterial systolic pressure is 10 mmHg. Left Ventricle Definity contrast administered improved wall motion interpretation. E/e' 12 is mildly elevated. Left ventricular chamber dimension is normal. Left ventricular systolic function is normal, estimated at 55-60%. The left ventricular diastolic function is abnormal. Right Ventricle Right ventricular chamber dimension is normal. Right ventricular systolic function is normal. Left Atria Left atrial chamber dimension is mildly enlarged. Right Atria Right atrial chamber dimension is normal. Aortic Valve There is moderate to severe aortic valve stenosis based on a peak velocity of 355.35 cm/s, mean gradient of 31 mmHg, and aortic valve area of 0.92 cm2. The aortic valve is not well visualized. Cannot determine number of aortic valve leaflets. There is moderate aortic valve sclerosis. There is no aortic valve regurgitation. Pulmonic Valve There is no pulmonic regurgitation. Mitral Valve There is no mitral valve stenosis. There is no mitral valve regurgitation. Tricuspid Valve There is no tricuspid valve regurgitation. No pulmonary hypertension, estimated pulmonary arterial systolic pressure is 10 mmHg. Pericardium/Pleural There is no pericardial effusion. Inferior Vena Cava Normal inferior vena cava with >50% collapse upon inspiration consistent with normal right atrial pressure, 5 mmHg. Aorta The aortic root size at the sinus of Valsalva is normal. Left Ventricular Outflow Tract Name Value Normal LVOT 2D LVOT Diameter 2.00 cm LVOT Doppler
[2023-10-08] MEDS: PERFLUTREN LIPID MICROSPHERES 1.5 ML VIAL DILUTED TO 10 ML TOTAL VOLUME IV PUSH (15:23)
--- NOTE | 2023-10-08 15:35 | IVDEFINITY ---
Prior to administration of IV Definity the patient was educated on the risks and benefits of the imaging enhancing agent including potential adverse side effects. The patient verbalized understanding. Allergies were verified. No exclusion criteria were identified and at least one of the following inclusion criteria were met: 1) physician request, 2) patient technically difficult to image (per the [place] [employer] guidelines of two or more segments not discernable within the apical view), or 3) questionable left ventricular function. ?
== END 2023-10-08 14:28 | disposition home or self-care (01) ==
LOC: ANHCARD 14:28
PROVIDERS: PCP Family Medicine; Visit Provider Nurse Practitioner Family
DX: G47.33 Obstructive sleep apnea (adult) (pediatric) (principal)
CPT/HCPCS: C8929; Q9957

== ENCOUNTER 2023-11-03 10:07 | Outpatient (CLI) | payer MEDICARE, OTHER, SELFPAY ==
--- NOTE | ~2023-11-03 | NM_ITS ---
EXAMINATION: NM bone scan whole body DATE: 11/03/2023 13:39 INDICATION: Chronic pain TECHNIQUE: 36 mCi Tc-99m HDP was administered intravenously. Delayed whole-body scintigrams were obt ained. COMPARISON: Left hip CT dated 11/03/2023, pelvis and bilateral hip radiographs dated 09/19/2023 and cer vical spine radiographs dated 02/02/2020 FINDINGS: There is increased uptake anteriorly at the lower cervical spine corresponding to prominent anterior endplate osteophytosis at C4-C7 as seen on the prior radiographs. Likely degenerative mild joint cent ered uptake at the bilateral acromioclavicular joints and at a few joints in the bilateral ankles and mid feet. Likely enthesopathic uptake at the bilateral calcaneal posterior tuberosity is as well as at the left anterior tibial tuberosity. Opinion defect at the left femoral head corresponding to the left total hip arthroplasty. No abnormal uptake along the margins of the arthroplasty to suggest loos ening or infection. No other suspicious bone lesions to suggest metastatic disease or acute osseous a bnormality. IMPRESSION: 1. Scattered foci of likely degenerative uptake as detailed above. No evident metastatic disease or a cute osseous abnormality. Reviewed, dictated and finalized at location A. IMPRESSION: 1. Scattered foci of likely degenerative uptake as detailed above. No evident m etastatic disease or acute osseous abnormality.
--- NOTE | ~2023-11-03 | CT_ITS ---
Procedure: CT hip LT wo con Ordering provider: Rayshawn Browne MD History: . G89.29 - Other chronic pain . Comparison: None. Technique: Thin slice axial CT of the No IV contrast was given. Sagittal and coronal reformatted imag es were also obtained and reviewed. Findings: BONES: Cystic area seen in the left acetabulum which measures 1.7 x 1.7x 2.6cm. JOINT SPACES: Left hip total arthroplasty. SOFT TISSUES: Normal Fusion of the left sacroiliac joint. IMPRESSION: Left hip total arthroplasty. No acute fractures seen. Cystic areas seen in the left acetabulum laterally which may be a cyst or an abscess. Further evaluat ion advised. Fusion of the left sacroiliac joint. Reviewed, dictated and finalized at location A. IMPRESSION: Left hip total arthroplasty. No acute fractures seen. Cystic areas seen in the left acetabulum laterally which may be a cyst or an ab scess. Further evaluation advised. Fusion of the left sacroiliac joint.
== END 2023-11-03 10:08 | disposition home or self-care (01) ==
LOC: ANHIMG 10:11
PROVIDERS: PCP Family Medicine; Visit Provider Orthopaedic Surgery
DX: M43.28 Fusion of spine, sacral and sacrococcygeal region (principal); G89.29 Other chronic pain; Z96.642 Presence of left artificial hip joint
CPT/HCPCS: 73700; 78306; A9503

== ENCOUNTER 2023-11-04 07:48 | Outpatient (CLI) | payer MEDICARE, OTHER, SELFPAY ==
--- NOTE | ~2023-11-04 | NM_ITS ---
EXAMINATION: NM shantanu stress w perfusion DATE: 11/04/2023 10:04 INDICATION: Nonrheumatic aortic valve stenosis. TECHNIQUE: Rest images were obtained following intravenous administration of 9.9 mCi Tc99m tetrofosmi n (Myoview). The patient was infused intravenously with Lexiscan (regadenoson). Then, 32.1 mCi Tc99m tetrofosmin (Myoview) was administered intravenously, and stress images were obtained. Data was recon structed into short axis and horizontal and vertical long axis SPECT images. Gated SPECT images were also obtained. COMPARISON: None. FINDINGS: There is no definite reversible or fixed perfusion abnormality to suggest ischemia or infar ction. There is no segmental wall motion abnormality. Left ventricular ejection fraction measures 4 6%. IMPRESSION: 1. No definite ischemia or infarct. 2. Left ventricular ejection fraction measuring 46%. Reviewed, dictated and finalized at location A.
--- NOTE | 2023-11-04 07:53 | EST_ITS ---
Patient Info Name: Thomas Branham Age: 68 years : 1955 Gender: Male Ht: 68 in Wt: 300 lbs BSA: 2.63 m2 HR: 71 bpm BP: 164 / 104 mmHg Heart Rhythm: Sinus Arrhythmia Exam Date: 11/04/2023 8:45 AM Exam Location: Echo Lab Patient Status: Outpatient Admit Date: 11/04/2023 Staff Ordering Physician: Serina Brower Attending Provider: Serina Brower Exercise Technologist: Trish Armenta CT Exercise Physician: Jace Heard DO Exam Type: CA stress shantanu w NM Study Info Indications - nonrhuematic valve A regadenoson stress test was performed. Summary 1. 1. Negative lexiscan stress test for ischemic ST changes by ECG criteria. 2. 2. Baseline hypertension. 3. 3. Nuclear scan to follow and will be reported separately. Please correlate with it. 4. 4. Patient informed of the above results. Protocol: Lexiscan Stress ECG Details Stage: REST Duration (min): 1 min : 6 sec HR (bpm): 71 SBP (mmHg): 164 DBP (mmHg): 104 Stage: REST Duration (min): 6 min : 56 sec HR (bpm): 69 SBP (mmHg): 164 DBP (mmHg): 104 Stage: STAGE 1 Duration (min): 1 min : 0 sec HR (bpm): 91 SBP (mmHg): 164 DBP (mmHg): 104 Stage: RECOVERY Duration (min): 1 min : 0 sec HR (bpm): 83 SBP (mmHg): 164 DBP (mmHg): 94 Stage: RECOVERY Duration (min): 2 min : 0 sec HR (bpm): 79 SBP (mmHg): 164 DBP (mmHg): 94 Stage: RECOVERY Duration (min): 3 min : 0 sec HR (bpm): 78 SBP (mmHg): 175 DBP (mmHg): 100 Stage: RECOVERY Duration (min): 3 min : 37 sec HR (bpm): 77 SBP (mmHg): 175 DBP (mmHg): 100 Rest HR: 69 bpm Peak HR: 91 bpm Rest Sys BP: 164 mmHg Peak Sys BP: 175 mmHg Max Pred HR: 154 bpm % Max Pred HR: 59 % Target HR: 131 bpm Max RPP: 15,925 bpm*mmHg Termination Reason: Completed protocol Cardiac Symptoms: Shortness of breath Total Time: 1 min : 0 sec Rest Santana BP: 104 mmHg Peak Santana BP: 100 mmHg Total Dose: 0.4 mg Resting ECG Sinus rhythm. Stress ECG No ST changes. Arrhythmias None. Report Signatures
== END 2023-11-04 07:49 | disposition home or self-care (01) ==
LOC: ANHCARD 07:49
PROVIDERS: PCP Family Medicine; Visit Provider Nurse Practitioner Family
DX: I35.0 Nonrheumatic aortic (valve) stenosis (principal); R06.02 Shortness of breath
CPT/HCPCS: 78452; 93017; A9502; J2785

== ENCOUNTER 2023-11-18 13:31 | Outpatient (CLI) | payer MEDICARE, OTHER, SELFPAY ==
--- NOTE | ~2023-11-18 | US_ITS ---
EXAMINATION: US hip asp inj w image LT DATE: 11/18/2023 16:08 INDICATION: Chronic left hip pain with erosive acetabular lesion on prior CT. TECHNIQUE: The procedure including the risks and benefits was discussed with the patient. Risks discu ssed included bleeding and infection. The patient understood the risks and agreed to proceed. The sk in overlying the left hip was prepped and draped in usual sterile fashion. Anesthetic was administer ed with 1% lidocaine subcutaneously. An 20 gauge spinal needle was advanced under continuous ultraso und observation to a small hypoechoic region at the head neck junction of the femoral component of th e left total hip arthroplasty. Despite contacting the arthroplasty component with the needle at a few locations, no fluid was able to be aspirated. The needle was removed and the entry site was cleaned and dressed. Post procedure ultrasound demonstrated no hemorrhage. FINDINGS: Ultrasound images demonstrate no definitive left hip joint effusion. Attempted aspiration o f the small hypoechoic region along the head neck junction of the femoral component of the left total hip arthroplasty yielded no fluid. IMPRESSION: 1. No left hip joint effusion with no fluid yielded on attempted aspiration. Reviewed, dictated and finalized at location A.
== END 2023-11-18 13:32 | disposition home or self-care (01) ==
LOC: ANHIMG 13:34
PROVIDERS: PCP Family Medicine; Visit Provider Orthopaedic Surgery
DX: M25.552 Pain in left hip (principal); G89.29 Other chronic pain; Z96.642 Presence of left artificial hip joint
CPT/HCPCS: 20611

== ENCOUNTER 2024-05-13 09:43 | Outpatient (CLI) | payer MEDICARE, OTHER, SELFPAY ==
--- OUTSIDE RECORDS SUMMARY | 2024-05-13 09:57 | XMS_ITS | Clinical Summary ---
Author Organization [facility] Medical [facility] [place] [address] [place] [id number] Care Team Providers Care Mortgage Loan Officer Originator Name Role Phone Omer Davies MD Primary Care Provider Allergies No known active allergies Medications AFLURIA QUAD [id number], PF, 60 mcg/0.5 mL syringe ADM 0.5ML IM UTD 0 8 Active rosuvastatin (CRESTOR) 10 mg tablet TK 1 T PO QD 1 8 Active tamsulosin (FLOMAX) 0.4 mg extended release capsule TK 1 C PO D 1/2 HOUR FOLLOWING THE SAME MEAL EACH DAY 3 8 Active finasteride (PROSCAR) 5 mg tablet 1 Active multivitamin tablet Take 1 tablet by mouth daily Active sildenafiL (VIAGRA) 100 mg tablet 0 Active venlafaxine XR (EFFEXOR-XR) 150 mg 24 hr capsule 4 Active Active Problems Problem Noted Date Diagnosed Date Nonrheumatic aortic valve stenosis 12/22/2023 JESS (obstructive sleep apnea) 12/22/2023 Severe obesity 12/22/2023 Body mass index (BMI) 45.0-49.9, adult 4 Mixed hyperlipidemia 12/22/2023 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/05/2016 Neck pain 12/02/2016 Disorder involving thrombocytopenia (CMS/HCC) Encounters Date Type Department Care Team Description 04/19/2024 10:15 AM STUDENT LIAISON OFFICER Office Visit [facility] Card[facility] [address] [place] [address] Shawnee Godinez MD Nonrheumatic aortic valve stenosis (Primary Dx); Mixed hyperlipidemia; JESS (obstructive sleep apnea) 04/05/2024 11:15 AM STUDENT LIAISON OFFICER Ancillary Procedure [facility] Cardiology [address] [place] [address] Nonrheumatic aortic (valve) stenosis; Nonrheumatic aortic valve stenosis from Last 3 Months Immunizations Immunization Administration Dates Next Due Influenza, Unspecified 01/22/2018,02/03/2015, ZOSTER LIVE 02/03/2015,01/06/2015 Surgical History Surgery Date Site/Laterality Comments MS CHOLECYSTECTOMY Cholecystectomy - (Added by TW Conv) TOTAL HIP ARTHROPLASTY Hip Replacement - (Added by TW Conv) MS UNLISTED PROCEDURE ABDOME N PERITONEUM & OMENTUM Hernia Repair - (Added by TW Conv) JOINT REPLACEMENT 2012 VASECTOMY 1983 Medical History Medical History Date Comments Personal history of other di seases of the circulatory system History of hypertension - (A dded by TW Conv) Nonrheumatic aortic valve stenosis Arthritis 1988 Hypertension 2009 Sleep apnea 2000 Family History Medical History Relation Name Comments Cancer Father Ignacia Collado Famil y history of cancer - (Added by TW Conv) Hypertension Father Ignacia Collado Obesity Father Ignacia Collado Alzheimer's disease Mother Family h istory of Alzheimer's disease - (Added by TW Conv) Relation Name Status Comments Father Ignacia Collado Mother Social History Tobacco Use Types Packs/Day Years Used Date Smoking Tobacco: Never Cigarettes Smokeless Tobacco: Never Tobacco Cessation:Counseling Given: Not Answered Sex and Gender Information Value Date Recorded Sex Assigned at Not on file Legal Sex Male 9:47 AM STUDENT LIAISON OFFICER Gender Identity Not on file Sexual Orientation Not on file Obstetrics History Last Filed Vital Signs Vital Sign Reading Time Taken Comments Blood Pressure 120/80 04/19/2024 10:07 AM STUDENT LIAISON OFFICER Pulse 103 04/19/2024 10:07 AM STUDENT LIAISON OFFICER Temperature - - Respiratory Rate - - Oxygen Saturation 99% 04/19/2024 10: 07 AM STUDENT LIAISON OFFICER Inhaled Oxygen Concentration - - Weight 145.9 kg (321 lb 9.6 oz) 025 10:07 AM STUDENT LIAISON OFFICER Height 175.3 cm (5' 9 ) 04/19/2024 10:0 7 AM STUDENT LIAISON OFFICER Body Mass Index 47.49 04/19/2024 10:07 AM STUDENT LIAISON OFFICER Plan of Treatment Health Maintenance Due Date Last Done Comments Colon Cancer Screening-Colonoscopy 1955 Depression Screening 1955 Fall Risk Assessment 1955 Hepatitis C Screening 1955 Prostate Cancer Screening-PSA 1955 DTaP/Tdap/Td Vaccine (1 - Tdap) 1968 Hepatitis B Screening 08/01/1975 Pneumococcal vaccine 65+ (1 of 1 - PCV) 08/01/2007 Well Visit 65+ 2022 Influenza Vaccine (#1) 2023 9, 01/22/2018, 01/07/2018, Additional history exists Zoster Vaccine Completed 03/08/2019, 12/22, 02/03/2015, Additional history exists Procedures Procedure Name Priority Date/Time Associated Diagnosis Comments POCT LIPID PANEL Routine 04/19/2024 10:3 0 AM STUDENT LIAISON OFFICER Mixed hyperlipidemia TRANSTHORACIC ECHO (TTE) COMPLETE W DOPPLER/CF W CONTRAST Routine 04/05/2024 12:24 PM STUDENT LIAISON OFFICER Nonrheumatic aortic (valve) stenosis Nonrheumatic aortic valve stenosis from Last 3 Months Results * POCT lipid panel (04/19/2024 10:30 AM STUDENT LIAISON OFFICER) Cholesterol, POC N/A mg/dL Comment:GLU = 118 HDL, POC 23 mg/dL Triglycerides, POC 251 mg/dL LDL Cholesterol POC N/A mg/dL Chol/HDL Ratio, POC N/A Non-HDL Cholesterol, POC N/A mg/dL Cholesterol Total, POC N/A mg/dL Capillary blood 04/19/2024 1 0:30 AM STUDENT LIAISON OFFICER us Shawnee Godinez MD POINT OF CARE TEST O RDERABLES Final Result * TRANSTHORACIC ECHO (TTE) COMPLETE W DOPPLER/CF W CONTRAST (04/05/2024 12:24 PM STUDENT LIAISON OFFICER) LV EF 45-50 % CONS SCIMAGE Anatomical Region Laterality Modality Ultrasound 04/05/2024 11:0 0 AM STUDENT LIAISON OFFICER Narrative 04/05/2024 3:28 PM STUDENT LIAISON OFFICER [facility] Cardiology [address] [facility] [address], [place] [address] [address] [facility] [address], [place] [address] P:[phone] P:[phone] Echocardiographic Report Patient Name: IGNACIA COLLADO G : 1955 Study Date: 04/05/2024 11:00:26 AM Gender: M Tech: Location: [place] Ref Provider: SHAWNEE GODINEZ Height(Cm): 175 BSA: 2.62 Weight(Kg): 141.1 Heart Rate: 83 BP: 118 / 78 Quality: Definity contrast agent used to enhance endocardial border definition Order Provider: SHAWNEE GOIDNEZ PROCEDURES: Echocardiographic Report: Transthoracic echocardiogram with complete 2D, M-Mode, color Doppler examination and Definity contrast. With Strain Analysis. INDICATIONS: Aortic Stenosis. MEASUREMENTS: 2D/MM Value Range Doppler Value Range EF Mod BP 69 % [ 52 - 72 ] KETTY Vmax 1.04 cm2 [ 2.00 - 4.00 ] Estimated EF 45-50 % AV Mean PG 22 mmHg LVIDd 2D 5.72 cm [ 4.20 - 5.80 ] AV Peak Jens 2.78 m/s [ 1.00 - 1.70 ] LVIDd MM 5.09 cm [ 4.20 - 5.80 ] AV Peak PG 31 mmHg LVIDs 2D 4.56 cm [ 2.50 - 4.00 ] AV VTI 54.53 cm LVIDs MM 4.18 cm [ 2.50 - 4.00 ] LVOT Diam 2.14 cm [ 1.70 - 2.10 ] LVPWd 2D 0.76 cm [ 0.60 - 1.00 ] LVOT Peak Jens 0.81 m/s [ 0.70 - 1.10 ] LVPWd MM 0.97 cm [ 0.60 - 1.00 ] LVOT VTI 18.97 cm IVSd 2D 1.16 cm [ 0.60 - 1.00 ] MV E Peak Jens 0.53 m/s [ 0.60 - 1.30 ] IVSd MM 1.17 cm [ 0.60 - 1.00 ] MV A Peak Jens 0.69 m/s [ 1.00 - 1.20 ] LA Dimension MM 2.92 cm [ 3.00 - 4.00 ] MV Decel Time 114 msec [ 104 - 258 ] AoR Diam MM 3.70 cm [ 3.10 - 3.70 ] PV Peak Jens 1.24 m/s [ 0.40 - 0.80 ] LA Volume Index 26 cc/m2 [ 16 - 34 ] E` 0.08 m/s E/E` 7 2D/MM Value Range Doppler Value Range - FINDINGS: Interpretation Site: Exam was interpreted at [facility]. Left Ventricle: Definity contrast agent used to visually enhance endocardial wall motion and contractility. Lot Number: [id number]. Mild concentric left ventricular hypertrophy. Left ventricular systolic function at the lower limit of normal. Diastolic dysfunction is present. Ejection fraction is measured at 69 %. Ejection Fraction is visually estimated to be 45-50 %. Right Ventricle: Normal right ventricular size. Normal right ventricular systolic function. Left Atrium: The left atrium is normal in size. Right Atrium: The right atrium is normal in size. Atrial Septum: The atrial septum is not well visualized. Mitral Valve: Normal appearance of the mitral valve. No mitral valve regurgitation is seen. There is no hemodynamically significant mitral stenosis by Doppler. Aortic Valve: Aortic valve not well visualized. Moderate aortic stenosis. Peak Velocity of 2.78 m/s. Peak gradient of 31.0 mmHg. Mean gradient of 22.0 mmHg. Valve area of 1 cm2. No aortic regurgitation. Tricuspid Valve: Normal appearance of the tricuspid valve. No evidence of tricuspid regurgitation. Pulmonic Valve: Normal appearance of the pulmonic valve. No evidence of pulmonic regurgitation. Pericardium: Normal pericardium with no significant pericardial effusion. Aorta: Sinus of Valsalva is normal. IVC: The IVC is not well visualized. Pulmonary Artery: Pulmonary artery not well visualized. CONCLUSIONS: Definity contrast agent used to visually enhance endocardial wall motion and contractility. Lot Number: [id number]. Mild concentric left ventricular hypertrophy. Left ventricular systolic function at the lower limit of normal. Diastolic dysfunction is present. Ejection fraction is measured at 69 %. Ejection Fraction is visually estimated to be 45-50 %. Aortic valve not well visualized. Moderate aortic stenosis. Peak Velocity of 2.78 m/s. Peak gradient of 31.0 mmHg. Mean gradient of 22.0 mmHg. Valve area of 1 cm2. No aortic regurgitation. Technically difficult study with limited views. Electronically Signed By: Dr. Shawnee Godinez [facility] 04/05/2024 3:27:25 PM STUDENT LIAISON OFFICER Procedure Note Shawnee Godinez MD - 04/05/2024 [facility] Card[facility] [address] [facility] [address], [place] [address] [address] [facility] [address], [place] [address] P:[phone] P:[phone] Echocardiographic Report Patient Name: IGNACIA COLLADO G : 1955 Study Date: 04/05/2024 11:00:26 AM Gender: M Tech: Location: [facility] Provider: SHAWNEE GODINEZ Height(Cm): 175 BSA: 2.62 Weight(Kg): 141.1 Heart Rate: 83 BP: 118 / 78 Quality: Definity contrast agent used to enhance endocardial borderdefinition Order Provider: SHAWNEE GODINEZ PROCEDURES: Echocardiographic Report: Transthoracic echocardiogram with complete 2D, M-Mode, color Dopplerexamination and Definity contrast. With Strain Analysis. INDICATIONS: Aortic Stenosis. MEASUREMENTS: 2D/MM Value Range Doppler ValueRange EF Mod BP 69 % [ 52 - 72 ] KETTY Vmax 1.04cm2 [ 2.00 - 4.00 ] Estimated EF 45-50 % AV Mean PG 22mmHg LVIDd 2D 5.72 cm [ 4.20 - 5.80 ] AV Peak Jens 2.78m/s [ 1.00 - 1.70 ] LVIDd MM 5.09 cm [ 4.20 - 5.80 ] AV Peak PG 31mmHg LVIDs 2D 4.56 cm [ 2.50 - 4.00 ] AV VTI 54.53cm LVIDs MM 4.18 cm [ 2.50 - 4.00 ] LVOT Diam 2.14 cm[ 1.70 - 2.10 ] LVPWd 2D 0.76 cm [ 0.60 - 1.00 ] LVOT Peak Jens 0.81m/s [ 0.70 - 1.10 ] LVPWd MM 0.97 cm [ 0.60 - 1.00 ] LVOT VTI 18.97cm IVSd 2D 1.16 cm [ 0.60 - 1.00 ] MV E Peak Jens 0.53m/s [ 0.60 - 1.30 ] IVSd MM 1.17 cm [ 0.60 - 1.00 ] MV A Peak Jens 0.69m/s [ 1.00 - 1.20 ] LA Dimension MM 2.92 cm [ 3.00 - 4.00 ] MV Decel Time 114msec [ 104 - 258 ] AoR Diam MM 3.70 cm [ 3.10 - 3.70 ] PV Peak Jens 1.24m/s [ 0.40 - 0.80 ] LA Volume Index 26 cc/m2 [ 16 - 34 ] E` 0.08m/s E/E` 7 2D/MM Value Range Doppler ValueRange - FINDINGS: Interpretation Site: Exam was interpreted at [facility]. Left Ventricle: Definity contrast agent used to visually enhance endocardial wall motionand contractility. Lot Number: [id number]. Mild concentric left ventricularhypertrophy. Left ventricular systolic function at the lower limit of normal. Diastolicdysfunction is present. Ejection fraction is measured at 69 %. Ejection Fraction isvisually estimated to be 45-50 %. Right Ventricle: Normal right ventricular size. Normal right ventricular systolicfunction. Left Atrium: The left atrium is normal in size. Right Atrium: The right atrium is normal in size. Atrial Septum: The atrial septum is not well visualized. Mitral Valve: Normal appearance of the mitral valve. No mitral valve regurgitation isseen. There is no hemodynamically significant mitral stenosis by Doppler. Aortic Valve: Aortic valve not well visualized. Moderate aortic stenosis. Peak Velocityof 2.78 m/s. Peak gradient of 31.0 mmHg. Mean gradient of 22.0 mmHg. Valve area of 1cm2. No aortic regurgitation. Tricuspid Valve: Normal appearance of the tricuspid valve. No evidence of tricuspidregurgitation. Pulmonic Valve: Normal appearance of the pulmonic valve. No evidence of pulmonicregurgitation. Pericardium: Normal pericardium with no significant pericardial effusion. Aorta: Sinus of Valsalva is normal. IVC: The IVC is not well visualized. Pulmonary Artery: Pulmonary artery not well visualized. CONCLUSIONS: Definity contrast agent used to visually enhance endocardial wall motionand contractility. Lot Number: [id number]. Mild concentric left ventricularhypertrophy. Left ventricular systolic function at the lower limit of normal. Diastolicdysfunction is present. Ejection fraction is measured at 69 %. Ejection Fraction isvisually estimated to be 45-50 %. Aortic valve not well visualized. Moderate aortic stenosis. Peak Velocityof 2.78 m/s. Peak gradient of 31.0 mmHg. Mean gradient of 22.0 mmHg. Valve area of 1cm2. No aortic regurgitation. Technically difficult study with limited views. Electronically Signed By: Dr. Shawnee Godinez [facility] 04/05/2024 3:27:25 PM STUDENT LIAISON OFFICER Shawnee Godinez MD CV ECHO PROCEDURES F inal Result from Last 3 Months Insurance [facility] [address] [place] [place] [address] FOR LIFE [facility] CLAIMS MEDICARE LOCATED WITHIN [facility] LIFE Care Teams Mortgage Loan Officer Originator Relationship Specialty Start Date End Date Omer Davies MD PCP - General Family Medicine 02/24/18
--- OUTSIDE RECORDS SUMMARY | 2024-05-13 09:57 | XMS_ITS | Encounter Summary ---
Author Organization [facility] [employer] [facility] Address [address] [place] [address] Care Team Providers Care Maintainability Engineer Name Role Phone Omer Davies MD Primary Care Provider [phone] Encounter Details Date Type Department Care Team (Late Contact Info) Description 05/13/2024 Orders Only [facility] Oncology and Hematology [facility] [address] [place] [address] Reynaldo Ramirez MD [facility] [address] [place] [phone] Other secondary thrombocytopenia (Primary Dx) Social History Tobacco Use Types Packs/Day Years Used Date Smoking Tobacco: Never Smokeless Tobacco: Never Alcohol Use Standard Drinks/Week Comments Yes 0 (1 standard drink = 0.6 oz pur e alcohol) OCCASIONLLY Sex and Gender Information Value Date Recorded Sex Assigned at Not on file Legal Sex Male 1:29 PM CDT Gender Identity Not on file Sexual Orientation Not on file documented as of this encounter Plan of Treatment Upcoming Encounters Date Type Department Care Team (Late st Contact Info) Description 05/14/2024 9:45 AM TUBE HANDLER Office Visit [facility] Oncology and Hematology [facility] [address] [place] [address] Reynaldo Ramirez MD [address] [place] [phone] Scheduled Orders Name Type Priority Associated Diagnoses Orde r Schedule COMPREHENSIVE METABOLIC PANEL Lab Routine Other secondary thrombocytopenia Expected: 05/13/2024, Expires: 05/13/2025 CBC WITH DIFFERENTIAL Lab Routine Other secondary thrombocytopenia Expected: 05/13/2024, Expires: 05/13/2025 VITAMIN B12 AND FOLATE Lab Routine Other secondary thrombocytopenia Expected: 05/13/2024, Expires: 05/13/2025 documented as of this encounter Visit Diagnoses Diagnosis Other secondary thrombocytopenia- Primary documented in this encounter Care Teams Maintainability Engineer Relationship Specialty Start Date End Date Omer Davies MD [address] [place] [address] PCP - General Family Practice 12/21/19 documented as of this encounter
--- OUTSIDE RECORDS SUMMARY | 2024-05-13 09:57 | XMS_ITS | Continuity of Care Document ---
Author Name [facility] Organization [facility] Care Team Providers Care Aircraft Engine Technician Name Role Phone [facility] Unavailable Unavailable Medications Combined list of outpatient medications from Department of Defense and Veterans Affairs facilities.Medications provided include 1) outpatient medications from the last 15 months, and 2) patient-reported medications. Medication Details Route Status Patient Instructions Prescription Expires Prescription Number Last Dispense Date Ordering Provider Order Date Order Qty Source amoxicillin 500 mg capsule See Instruct ions, Oral, # 12 EA, 0 total refill(s ), Hard Stop Oral (given by mouth) Ordered 08/04/2024 12.0 Ambul at ory Pharmac y AMOXICILLIN 500 MG ORAL CAP Finish the prescrip tion. Active 08/04/2024 [id number] 4 [address] [place] [address] [place] [facility] cyclobenzap rine 10 mg tablet 10 mg, Oral, TID, # 30 EA, 0 total refill(s ), Hard Stop Oral (given by mouth) Complet ed 04/12/2024 30.0 Ambulat ory Pharmac y finasteride 5 mg tablet 5 mg, Oral, Daily, # 90 EA, 3 total refill(s ), Hard Stop Oral (given by mouth) Ordered 03/11/2025 90.0 Ambul at ory Pharmac y finasteride 5 mg tablet See Instruct ions, # 90 EA, 3 total refill(s ), Hard Stop Complet ed 02/05/2024 90.0 Ambulat ory Pharmac y FLOMAX (BRAND) 0.4 MG ORAL CAP May cause drowsine ss.Be careful if taking OTCs.Kareem e or use exactly as directed .Swallow whole. Active 08/31/2024 [id number] 4 [address] [place] [address] Elvis [place] [facility] FLOMAX (BRAND) 0.4 MG ORAL CAP May cause drowsine ss.Be careful if taking OTCs.Kareem e or use exactly as directed .Swallow whole. 03/02/2024 [id number] 3 [address] [place] [address]) metoprolol succ (U/D) 50 MG ORAL TB24 Be careful if taking OTCs.Kareem e with food/mil k.Take or use exactly as directed .May impair driving. Swallow whole.Ma y cause drowsine ss/dizzi ness. Active 08/04/2024 [id number] 4 [address] [place] [address]) metoprolol succinate ER 50 mg/24 hour tablet See Instruct ions, # 90 EA, 1 total refill(s ), Acute Complet ed 08/01/2023 90.0 Ambulat ory Pharmac y metoprolol succinate ER 50 mg/24 hour tablet 50 mg, Oral, Daily, # 90 EA, 1 total refill(s ), Hard Stop Oral (given by mouth) Ordered 02/03/2025 90.0 Ambul at ory Pharmac y metoprolol succinate ER 50 mg/24 hour tablet 50 mg, Oral, Daily, # 90 EA, 1 total refill(s ), Hard Stop Oral (given by mouth) Discont inued 02/06/2024 90.0 Ambulat ory Pharmac y Naproxen (Naprosyn Eq.) Tablet 250mg Oral Take with food/mil k.Take or use exactly as directed .Obtain advice for OTCs.May cause drowsine ss/dizzi ness.[place] ck with your doctor before becoming . 03/02/2024 [id number] 3 [address] [place] [address]) naproxen 250 mg tablet See Instruct ions, Oral, # 180 EA, 0 total refill(s ), Hard Stop Oral (given by mouth) Discont inued 10/14/2023 180.0 Ambulat ory Pharmac y naproxen 250 mg tablet 250 mg, Oral, BID, # 180 EA, 0 total refill(s ), Hard Stop Oral (given by mouth) Ordered 07/26/2024 180.0 Ambul at ory Pharmac y naproxen 250 mg tablet See Instruct ions, Oral, 0, # 180 EA, 0 total refill(s ), Hard Stop Oral (given by mouth) Complet ed 08/26/2023 180.0 Ambulat ory Pharmac y predniSONE 10 mg tablet 30 mg, Oral, Daily, # 15 EA, 0 total refill(s ), Hard Stop Oral (given by mouth) Complet ed 04/07/2024 15.0 Ambulat ory Pharmac y PREVNAR 20 (pneumococc al 20-valent conjugate vaccine (Diphtheria crm)/PF), 0.5 ML, SYRINGE, INTRAMUSC, WYETH/PFIZE R, .5 ml SYRINGE Active [id number] 3 2023 0.5 Pharmac y [employer] y rosuvastati n (U/D) 10 MG ORAL TAB Do not take with milk, antacids , or iron.Kareem e or use exactly as directed .Do not take if . 03/02/2024 [id number] 3 2022 90 [employer] [employer] Elvis [place] ([facility] rosuvastati n 10 mg tablet See Instruct ions, # 90 EA, 1 total refill(s ), Hard Stop Discont inued 09/08/2023 90.0 Ambulat ory Pharmac y rosuvastati n 10 mg tablet 10 mg, Oral, Daily, # 90 EA, 1 total refill(s ), Hard Stop Oral (given by mouth) Ordered 03/16/2025 90.0 Ambul at ory Pharmac y rosuvastati n 10 mg tablet See Instruct ions, # 90 EA, 1 total refill(s ), Hard Stop Complet ed 08/26/2023 90.0 Ambulat ory Pharmac y sildenafil 100 mg tablet 100 mg, See dose instruct ions in comments , # 15 EA, 5 total refill(s ), Acute Complet ed 06/03/2023 15.0 Ambulat ory Pharmac y tamsulosin 0.4 mg capsule 0.4 mg, # 90 EA, 1 total refill(s ), Hard Stop Discont inued 09/08/2023 90.0 Ambulat ory Pharmac y tamsulosin 0.4 mg capsule 0.4 mg, Oral, Daily, # 90 EA, 1 total refill(s ), Hard Stop Oral (given by mouth) Ordered 03/16/2025 90.0 Ambul at ory Pharmac y tamsulosin 0.4 mg capsule See Instruct ions, # 90 EA, 1 total refill(s ), Hard Stop Complet ed 09/03/2023 90.0 Ambulat ory Pharmac y triamcinolo ne 0.5% cream [15g] = 1 appl(s), Topical, Daily, # 60 g, 0 total refill(s ), Hard Stop Topica l (on the skin) Complet ed 04/06/2024 60.0 Ambulat ory Pharmac y venlafaxine ER 150 mg/24 hour capsule 150 mg, Oral, Daily, # 90 EA, 0 total refill(s ), Hard Stop Oral (given by mouth) Ordered 03/16/2025 90.0 Ambul at ory Pharmac y venlafaxine ER 150 mg/24 hour capsule 150 mg, Oral, Daily, # 90 EA, 0 total refill(s ), Hard Stop Oral (given by mouth) Complet ed 03/09/2024 90.0 Ambulat ory Pharmac y venlafaxine ER 75 mg/24 hour capsule See Instruct ions, # 90 EA, 1 total refill(s ), Hard Stop Discont inued 09/08/2023 90.0 Ambulat ory Pharmac y venlafaxine ER 75 mg/24 hour capsule See Instruct ions, # 90 EA, 1 total refill(s ), Hard Stop Ordered 08/31/2024 90.0 Ambul at ory Pharmac y venlafaxine ER 75 mg/24 hour capsule See Instruct ions, # 90 EA, 1 total refill(s ), Hard Stop Complet ed 08/26/2023 90.0 Ambulat ory Pharmac y venlafaxine XR (U/D) 75 MG ORAL CP24 May cause drowsine ss.Do not drink alcohol. Take with food/mil k.Take or use exactly as directed . Active 08/31/2024 [id number] 4 2023 90 [facility] Elvis [place]ALEEM ([facility] venlafaxine XR (U/D) 75 MG ORAL CP24 May cause drowsine ss.Do not drink alcohol. Take with food/mil k.Take or use exactly as directed . 03/02/2024 [id number] 3 2022 90 [facility] Elvis [place]EM ([facility] Immunizations Combined list of available immunizations from the Department of Defense and Veterans Affairs facilities. Immunization Series Date Given Administered By Site Reaction Lot Number CVX Code Drug Desilverizer Status Comments Source Pneumococcal conjugate PCV20, polysaccharid e [id number] conjugate, adjuvant, PF 2022 () Not Given Pneumococ minnie conjugate PCV20, polysacch aride [id number] conjugate , adjuvant, PF DoD influenza virus vaccine, whole virus 1998 [id number] [facility] complet ed influenza virus vaccine, whole virus 02/05/99 Given Ambulat ory Pharmac y influenza virus vaccine, whole virus 1 1998 Unknown, Provider [id number] 16 [place] (CON) complet ed influenza virus vaccine, whole virus DoD Encounters Combined list of: 1) Encounters from [facility] facilities going backup to the last 18 months, not all [place] inpatient encounters are included; 2) Encounters from the Department of [facility] facilities going backup to 280 months. Location Location Details Encounter Type Encounter Number Reason For Visit Attending Provider ADM Date DC Date Status Disposition Source [facility] Outpatient Encounter [id number] 3 11/12 [facility] Procedures Combined list of: 1) Procedures from [facility] facilities going back up to thelast 18 months, not all [place] non-surgical procedures are included; 2) All procedures from the Department [facility] facilities. Procedure Procedure Type Code Date Perfomer Comments Sourc e No data available for this section Ambulatory P harmacy Social History Combined list of available smoking, tobacco, and other social history from Department of Defense and Veterans Affairs facilities. Social History Type Response Date Comment Sourc e This section is an empty social history section. DoD Assessment and Plan Combined list of future care activities from Department of Defense and Veterans Affairs facilities (e.g., assessment and plan notes, appointments, orders, and referrals). Additional future care activities may be listed in the Plan of Care section. Result Assessment and Plan Date Source Assessment and Plan No data available for this section 05/13/2024 Ambulatory Pharmacy Functional Status Combined list of recent functional and cognitive assessments recorded at Department of Defense and Veterans Affairs ([place]).VA Functional [place] Measurement (FIM) Scale: 1 = Total Assistance (Subject = 0% +), 2 = Maximal Assistance (Subject = 25% +), 3 = Moderate Assistance (Subject = 50% +), 4 = Minimal Assistance (Subject = 75% +), 5 = Supervision, 6 = Modified [place] (Device), 7 = Complete [place] (Timely, Safely). Assessment Date/Time Source Assessment Type Assessment Skill Assessment Score Assessment Details No data available for this section
--- OUTSIDE RECORDS SUMMARY | 2024-05-13 09:57 | XMS_ITS | Clinical Summary ---
Author Organization [facility] Address [address] [place] [address] Care Team Providers Care Stone Breaker Name Role Phone Unavailable Primary Care Provider Unavailabl e Social History Tobacco Use Types Packs/Day Years Used Date Smoking Tobacco: Never Assessed Sex and Gender Information Value Date Recorded Sex Assigned at Not on file Legal Sex Male 7:38 PM CDT Gender Identity Not on file Sexual Orientation Not on file Plan of Treatment Health Maintenance Due Date Last Done Comments Colorectal Cancer Screening Colonoscopy (10 Years) 1955 Hepatitis C 08/01/1975 DTaP, Tdap and Td Vaccines ( 1 - Tdap) 1976 Zoster Vaccines (1 of 2) 08/01/2007 Pneumococcal Vaccine: 65+ Ye ars (1 of 1 - PCV) 2022 COVID-19 Vaccine ( - 2023-2 5 season) 2023 Influenza Adult (#1) 2023 RSV Immunization or 60+ Years (1 - 1-dose 75+ series) 2032 Meningococcal B Vaccine Aged Out No l onger eligible based on patient's age to complete this topic Meningococcal Vaccine Aged Out No suzan diane eligible based on patient's age to complete this topic RSV Immunizations Under 20 Months Aged Out No longer eligible based on patient's age to complete this topic
--- OUTSIDE RECORDS SUMMARY | 2024-05-13 09:57 | XMS_ITS | Referral Summary ---
Author Organization [facility] [address] [place] [phone] Care Team Providers Care City Treasurer Name Role Phone Omer Davies MD Primary Care Provider [phone] Encounters Date Type Department Care Team Description 04/19/2024 10:15 AM PRINTED CIRCUIT BOARD DESIGNER Office Visit [facility] Cardiology [address] [place] [phone] Shawnee Godinez MD Nonrheumatic aortic valve stenosis (Primary Dx); Mixed hyperlipidemia; JESS (obstructive sleep apnea) 04/05/2024 11:15 AM PRINTED CIRCUIT BOARD DESIGNER Ancillary Procedure [facility] Cardiology [address] [place] [phone] Nonrheumatic aortic (valve) stenosis; Nonrheumatic aortic valve stenosis from Last 3 Months Allergies No known active allergies Medications AFLURIA QUAD [id number], PF, 60 mcg/0.5 mL syringe ADM 0.5ML [...] Neck pain 12/02/2016 Disorder involving thrombocytopenia (CMS/HCC) Immunizations Immunization Administration Dates Next Due Influenza, Unspecified 01/22/2018,02/03/2015, ZOSTER LIVE 02/03/2015,01/06/2015 Social History Tobacco Use Types Packs/Day Years Used Date Smoking Tobacco: Never Cigarettes Smokeless Tobacco: Never Tobacco Cessation:Counseling Given: Not Answered Sex and Gender Information Value Date Recorded Sex Assigned at Not on file Legal Sex Male 9:47 AM PRINTED CIRCUIT BOARD DESIGNER Gender Identity Not on file Sexual Orientation Not on file Last Filed Vital Signs Vital Sign Reading Time Taken Comments Blood Pressure 120/80 04/19/2024 10:07 AM PRINTED CIRCUIT BOARD DESIGNER Pulse 103 04/19/2024 10:07 AM PRINTED CIRCUIT BOARD DESIGNER Temperature - - Respiratory Rate - - Oxygen Saturation 99% 04/19/2024 10: 07 AM PRINTED CIRCUIT BOARD DESIGNER Inhaled Oxygen Concentration - - Weight 145.9 kg (321 lb 9.6 oz) 025 10:07 AM PRINTED CIRCUIT BOARD DESIGNER Height 175.3 cm (5' 9 ) 04/19/2024 10:0 7 AM PRINTED CIRCUIT BOARD DESIGNER Body Mass Index 47.49 04/19/2024 10:07 AM PRINTED CIRCUIT BOARD DESIGNER Plan of Treatment Not on file Procedures Procedure Name Priority Date/Time Associated Diagnosis Comments POCT LIPID PANEL Routine 04/19/2024 10:3 0 AM PRINTED CIRCUIT BOARD DESIGNER Mixed hyperlipidemia TRANSTHORACIC ECHO (TTE) COMPLETE W DOPPLER/CF W CONTRAST Routine 04/05/2024 12:24 PM PRINTED CIRCUIT BOARD DESIGNER Nonrheumatic aortic (valve) stenosis Nonrheumatic aortic valve stenosis from Last 3 Months Results * POCT lipid panel (04/19/2024 10:30 AM PRINTED CIRCUIT BOARD DESIGNER) Cholesterol, POC N/A mg/dL Comment:GLU = 118 HDL, POC 23 mg/dL Triglycerides, POC 251 mg/dL LDL Cholesterol POC N/A mg/dL Chol/HDL Ratio, POC N/A Non-HDL Cholesterol, POC N/A mg/dL Cholesterol Total, POC N/A mg/dL Capillary blood 04/19/2024 1 0:30 AM PRINTED CIRCUIT BOARD DESIGNER us Shawnee Godinez MD POINT OF CARE TEST O RDERABLES Final Result * TRANSTHORACIC ECHO (TTE) COMPLETE W DOPPLER/CF W CONTRAST (04/05/2024 12:24 PM PRINTED CIRCUIT BOARD DESIGNER) Pathologist [facility] LV EF 45-50 % CONS SCIMAGE Anatomical Region Laterality Modality Ultrasound 04/05/2024 11:0 0 AM PRINTED CIRCUIT BOARD DESIGNER Narrative 04/05/2024 3:28 PM PRINTED CIRCUIT BOARD DESIGNER [facility] Cardiology [address] [facility] [place] [address], [place] [address] [address] [facility] [address] [place] [address], [place] [address] P:[phone] P:[phone] Echocardiographic Report Patient Name: IGNACIA COLLADO G : 1955 Study Date: 04/05/2024 11:00:26 AM Gender: M Tech: Location: [place] Ref Provider: SHAWNEE GODINEZ Height(Cm): 175 BSA: 2.62 Weight(Kg): 141.1 Heart Rate: 83 BP: 118 / 78 Quality: Definity contrast agent used to enhance endocardial border definition Order Provider: SHAWNEE GODINEZ PROCEDURES: Echocardiographic Report: [...] FINDINGS: Interpretation Site: Exam was interpreted at [facility]. Left Ventricle: Definity contrast agent used to [...] Dr. Shawnee Godinez [facility] 04/05/2024 3:27:25 PM PRINTED CIRCUIT BOARD DESIGNER Procedure Note Shawnee Godinez MD - 04/05/2024 [facility] Cardiology [address] [facility] [address], [place] [address] [address] [facility] [address] [place], [place] [address] P:[phone] P:[phone] Echocardiographic Report Patient Name: IGNACIA COLLADO G : 1955 Study Date: 04/05/2024 11:00:26 AM Gender: M Tech: Location: [place] Ref Provider: SHAWNEE GODINEZ Height(Cm): 175 BSA: [...] FINDINGS: Interpretation Site: Exam was interpreted at [facility]. Left Ventricle: Definity contrast agent used to [...] Dr. Shawnee Godinez [facility] 04/05/2024 3:27:25 PM PRINTED CIRCUIT BOARD DESIGNER Shawnee Godinez MD CV ECHO PROCEDURES F inal Result from Last 3 Months Insurance [facility] Address: [address] [place] [address] MEDICARE [facility] FOR [facility] CLAIMS MEDICARE FOR LIFE Care Teams City Treasurer Relationship Specialty Start Date End Date Omer Davies MD PCP - General Family Medicine 02/24/18
--- OUTSIDE RECORDS SUMMARY | 2024-05-13 09:57 | XMS_ITS | Clinical Summary ---
Author Organization [facility] Address [address] [place] [address] Care Team Providers Care Fundraiser Name Role Phone Omer Davies MD Primary Care Provider [phone] Allergies No known active allergies Medications tamsulosin (FLOMAX) 0.4 mg capsule 11/30/2019 Active sildenafiL (VIAGRA) 100 mg tablet 10/05/2019 Active rosuvastatin (CRESTOR) 10 mg tablet TK 1 T PO D 12/20/2019 Active venlafaxine (EFFEXOR XR) 75 mg Extended Release 24 hour capsule TK 1 C PO QD 11/17/2019 Active cetirizine (ZyrTEC) 10 mg tablet Take 10 mg by mouth daily. Active multivitamin (DAILY-ANNETTA) tablet Take 1 Tablet by mouth daily. 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 Encounters Date Type Department Care Team Description 05/13/2024 Orders Only [facility] Oncology and Hematology - [place] [address] [place] [address] Reynaldo Ramirez MD Other secondary thrombocytopenia (Primary Dx) 03/30/2024 External Device Data STL ABSTRACTION Provider, Abstract from Last 3 Months Family History Medical History Relation Name Comments Heart Disease Brother 1 Cancer Father Healthy Mother Healthy Sister Healthy Son 1 Healthy Son 2 Healthy Son 3 Relation Name Status Comments Brother 1 Alive Brother 2 Father Mother Sister Alive Son 1 Alive Son 2 Alive Son 3 Alive Social History Tobacco Use Types Packs/Day Years Used Date Smoking Tobacco: Never Smokeless Tobacco: Never Tobacco Cessation:Counseling Given: Not Answered Alcohol Use Standard Drinks/Week Comments Yes 0 (1 standard drink = 0.6 oz pur e alcohol) OCCASIONLLY Sex and Gender Information Value Date Recorded Sex Assigned at Not on file Legal Sex Male 1:29 PM CDT Gender Identity Not on file Sexual Orientation Not on file Last Filed Vital Signs Vital Sign Reading Time Taken Comments Blood Pressure 173/96 05/09/2023 9:[address] JUDGE Pulse 82 05/09/2023 9:[address] JUDGE Temperature 36.1 C (96.9 F) 05/09/2023 9:[address] JUDGE Respiratory Rate 16 05/09/2023 9:[address] JUDGE Oxygen Saturation 96% 05/09/2023 9:[address] JUDGE Inhaled Oxygen Concentration - - Weight 136.5 kg (301 lb) 05/09/2023 9:[address] JUDGE Height 175.3 cm (5' 9 ) 04/04/2021 9:[address] JUDGE Body Mass Index 44.45 04/04/2021 9:[address] JUDGE Plan of Treatment Upcoming Encounters Date Type Department Care Team (Late st Contact Info) Description 05/14/2024 9:[address] JUDGE Office Visit [facility] Oncology and Hematology - [place] [address] [place] [address] Reynaldo Ramirez MD [address] [employer] [address] [place] [address] Health Maintenance Due Date Last Done Comments DTAP/TDAP/TD VACCINES (1 - Tdap) 1974 Traditional Medicare (ACO) A nnual Wellness Visit 1976 COLORECTAL SCREENING 2002 Colorectal Cancer Screening 2002 FIT-DNA Q 3 years 2002 FIT/FOBT Q 1 year 2002 Flex Sig/CT Colonography Q 5 years 2002 PNEUMOCOCCAL VACCINE 65+ YEA RS (1 of 1 - PCV) 08/01/2007 ZOSTER VACCINE (2 of 3) 03/31/2015 02/03/2015, 01/06 INFLUENZA VACCINE (#1) 2023 RSV VACCINE (60+ or ) (1 - 1-dose 75+ series) 2032 Insurance MEDICARE PART A AND B [facility] MEDICARE PART A AND B Care Teams Fundraiser Relationship Specialty Start Date End Date Omer Davies MD [address] [place] [address] PCP - General Family Practice 12/21/19
[2024-05-13 10:17] LABS: Basophils Absolute Auto 0.1 K/mm3 (0.0-0.1); Basophils Percent Auto 0.7 % (0.2-1.2); Eosinophils Absolute Auto 0.1 K/mm3 (0-0.3); Eosinophils Percent Auto 1.2 % (0-4.4); Hematocrit 54.3 % (42.0-52.0); Hemoglobin 17.6 g/dL (14.0-18.0); Immature Granulocyte Absolute 0.02 K/mm3 (0.00-0.031); Immature Granulocyte Percent A 0.3 % (0-0.5); Immature Platelet Fraction Pct 17.8 % (0.9-11.2); Lymphocytes Absolute Auto 2.63 K/mm3 (0.9-3.2); Lymphocytes Percent Auto 35.5 % (18.3-44.2); Mean Corpuscular HGB Conc 32.4 g/dl (32-36); Mean Corpuscular Hemoglobin 30.2 pg (26-34); Mean Corpuscular Volume 93.3 fl (80-100); Mean Platelet Volume 13.3 fl (7.4-10.4); Monocytes Absolute Auto 0.5 K/mm3 (0.1-0.6); Neutrophils Absolute Auto 4.1 K/mm3 (1.3-6.7); Neutrophils Percent Auto 55.3 % (45.5-73.1); Platelet Count Result 120 k/mm3 (150-375); Red Blood Count 5.82 M/mm3 (4.6-6.20); Red Cell Distribution Width 13.5 % (11.5-14.5); White Blood Count 7.4 K/mm3 (4.5-10.0)
[2024-05-13 11:13] LABS: Alanine Aminotransferase 68 U/L (6-50); Albumin Level 4.4 g/dL (3.5-5.1); Alkaline Phosphatase 89 U/L (38-126); Anion Gap 11 mmol/L (4-12); Aspartate Amino Transferase 51 U/L (17-59); Bilirubin,Total 0.9 mg/dL (0.2-1.3); Blood Urea Nitrogen 23 mg/dL (9-20); Carbon Dioxide 25 mmol/L (22-30); Chloride 103 mmol/L (98-107); Estimated Glomerular Filt Rate > 60; Glucose 92 mg/dL (65-110); Potassium 4.6 mmol/L (3.4-5.0); Sodium 139 mmol/L (137-145)
[2024-05-13 12:20] LABS: Folic Acid > 20.0 ng/mL (2.76->20)
== END 2024-05-13 09:44 | disposition home or self-care (01) ==
PROVIDERS: PCP Family Medicine; Visit Provider Internal Medicine Hematology & Oncology
DX: D69.59 Other secondary thrombocytopenia (principal)
CPT/HCPCS: 36415; 80053; 82607; 82746; 85025; 85055

== ENCOUNTER 2024-12-13 13:41 | Outpatient (CLI) | payer MEDICARE, OTHER, SELFPAY ==
--- NOTE | 2024-12-13 13:43 | ECHO_ITS ---
Patient Info Name: Thomas Branham Age: 69 years : 1955 Gender: Male Ht: 69 in Wt: 250 lbs BSA: 2.40 m2 HR: 73 bpm BP: 140 / 92 mmHg Heart Rhythm: Sinus Rhythm Technical Quality: Fair Exam Date: 12/13/2024 1:52 PM Patient Status: O Admit Date: 12/13/2024 Exam Type: CA echo dop color flow w con Complete two-dimensional, color flow and Doppler transthoracic echocardiogram is performed with contrast to opacify the left ventricle and to improve the deliniation of the left ventricle endocardial borders. Commutator Repairer: Nelida Joy Attending Provider: Serina Brower Contrast/Agitated Saline Contrast/Ag. Saline: Definity Amount: 2.00 ml Administered By: Nelida Joy New IV Access: Left Site Condition: IV removed Summary 1. Definity contrast administered improved wall motion interpretation. 2. Left ventricular chamber dimension is normal. 3. Left ventricular systolic function is normal, estimated at 55-60. 4. There is moderate concentric increased left ventricular wall thickness. 5. The left ventricular diastolic function is grade I diastolic dysfunction. 6. E/e' 9 is minimally elevated. 7. Left atrial chamber dimension is mildly enlarged. 8. The aortic valve is not well visualized. Cannot determine number of aortic valve leaflets. 9. There is moderate aortic valve sclerosis. 10. There is severe aortic valve stenosis based on a peak velocity of 249 cm/s, mean gradient of 16 mmHg, and aortic valve area of 0.8 cm2. 11. The mitral valve has a mildly calcified annulus. Left Ventricle E/e' 9 is minimally elevated. Left ventricular chamber dimension is normal. Left ventricular systolic function is normal, estimated at 55-60. There is moderate concentric increased left ventricular wall thickness. The left ventricular diastolic function is grade I diastolic dysfunction. Definity contrast administered improved wall motion interpretation. Right Ventricle Right ventricular chamber dimension is normal. Right ventricular systolic function is normal and with normal TAPSE 2.6 cm. Left Atria Left atrial chamber dimension is mildly enlarged. Right Atria Right atrial chamber dimension is normal. Aortic Valve The aortic valve is not well visualized. Cannot determine number of aortic valve leaflets. There is moderate aortic valve sclerosis. There is severe aortic valve stenosis based on a peak velocity of 249 cm/s, mean gradient of 16 mmHg, and aortic valve area of 0.8 cm2. There is no aortic valve regurgitation. Pulmonic Valve There is no pulmonic regurgitation. Mitral Valve The mitral valve has a mildly calcified annulus. There is no mitral valve stenosis. There is no mitral valve regurgitation. Tricuspid Valve There is no tricuspid valve regurgitation. Pericardium/Pleural There is no pericardial effusion. Inferior Vena Cava Normal inferior vena cava with >50% collapse upon inspiration consistent with normal right atrial pressure, 5 mmHg. Aorta The aortic root size at the sinus of Valsalva is normal. Left Ventricular Outflow Tract Name Value Normal LVOT 2D LVOT Diameter 2.0 cm LVOT Doppler LVOT Peak Velocity 67 cm/s LVOT Peak Gradient 2 mmHg LVOT Mean Gradient 1 mmHg LVOT VTI 12 cm LVOT VTI/AV VTI Ratio 0.3 LVOT Stroke Volume 39 ml LVOT CO 3.1 l/min LVOT CI 1.3 l/min/m2 Pulmonic Valve Name Value Normal RVOT Doppler RVOT Peak Velocity 61 cm/s RVOT Peak Gradient 1 mmHg PV Doppler PV Peak Velocity 125 cm/s PV Peak Gradient 6 mmHg Mitral Valve Name Value Normal MV Diastolic Function MV E Peak Velocity 40 cm/s MV A Peak Velocity 58 cm/s MV E/A 0.7 MV Decel Time (PW) 287 ms MV Annular TDI MV E/e' (Septal) 8.4 MV E/e' (Lateral) 10.6 MV E/e' (Average) 9.5 Tricuspid Valve Name Value Normal Estimated PAP/RSVP RA Pressure 5 mmHg <=5 TV Annular TDI TV Lateral Maribel s' Velocity 15.5 cm/s >=9.5 Aorta Name Value Normal Ascending Aorta Ao Root Diameter (MM) 2.9 cm Ao Root Diam Index (MM) 1.2 cm/m2 Aortic Valve Name Value Normal AV Doppler AV Peak Velocity 249 cm/s AV Peak Gradient 25 mmHg AV Mean Gradient 16 mmHg AV VTI 47 cm AV Area (Cont Eq VTI) 0.8 cm2 >=3.0 AV Area (Cont Eq Jens) 0.9 cm2 AV DI (Jens) 0.27 AV Regurgitation 2D LVOT Area 3.2 cm2 Ventricles Name Value Normal LV Dimensions 2D/MM IVS Diastolic Thickness (2D) 1.0 cm 0.6-1.0 LVID Diastole (2D) 5.8 cm 4.2-5.8 LVIW Diastolic Thickness (2D) 1.0 cm 0.6-1.0 LVID Systole (2D) 4.3 cm 2.5-4.0 LVIW Systolic Thickness (MM) 2.6 cm LVOT Diameter 2.0 cm LV Mass (2D Cubed) 230.07 g 88.00-224.00 LV Mass Index (2D Cubed) 96 g/m2 49-115 Relative Wall Thickness (2D) 0.33 <=0.42 LV Fractional Shortening/Ejection Fraction 2D/MM LV Fractional Shortening (2D) 26 % 25-43 LV EF (2D Teichholz) 50 % LV Diastolic Volume (4C MOD) 139 ml LV EF (4C MOD) 61 % LV Diastolic Volume (2C MOD) 92 ml LV EF (2C MOD) 61 % LV Diastolic Volume (BP MOD) 118 ml 62-150 LV Diastolic Volume Index (BP MOD) 49 ml/m2 34-74 LV Systolic Volume (BP MOD) 45 ml 21-61 LV Systolic Volume Index (BP MOD) 19 ml/m2 11-31 LV EF (BP MOD) 62 % 52-72 LV Diastolic Length (4C) 8.8 cm LV Systolic Length (4C) 6.6 cm LV Stroke Volume (4C MOD) 84 ml Atria Name Value Normal LA Dimensions LA Dimension (MM) 3.8 cm 3.0-4.0 LA Volume (4C A-L) 59 ml LA Volume (BP A-L) 73 ml RA Dimensions RA Area (4C) 17.6 cm2 <=18.0 Report Signatures
[2024-12-13] MEDS: PERFLUTREN LIPID MICROSPHERES 1.5 ML VIAL DILUTED TO 10 ML TOTAL VOLUME IV PUSH (14:00)
--- OUTSIDE RECORDS SUMMARY | 2024-12-13 14:03 | XMS_ITS | Clinical Summary ---
Author Organization [facility] [address] [place] [id number] Care Team Providers Care Drugless Doctor Name Role Phone Omer Davies MD Primary Care Provider Allergies No known active allergies Medications AFLURIA QUAD [id number], PF, 60 mcg/0.5 mL syringe 0 8 Active rosuvastatin (CRESTOR) 10 mg [...] 150 mg 24 hr capsule 4 Active Zepbound 7.5 mg/0.5 mL pen injector 5 Active metoprolol XL (TOPROL-XL) 50 mg extended release tablet Take 1 tablet (50 mg total) by mouth daily 2 Active Active Problems Problem Noted Date Diagnosed Date Nonrheumatic aortic valve stenosis 12/22/2023 JESS (obstructive sleep apnea) 12/22/2023 Severe obesity 12/22/2023 Body mass index (BMI) 45.0-49.9, adult 4 Mixed hyperlipidemia 12/22/2023 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/05/2016 Neck pain 12/02/2016 Disorder involving thrombocytopenia 02/03/2015 Immunizations Immunization Administration Dates Next Due Influenza, Unspecified 01/22/2018,02/03/2015, ZOSTER LIVE 02/03/2015,01/06/2015 Surgical History Surgery Date Site/Laterality Comments [place] CHOLECYSTECTOMY Cholecystectomy - (Added by TW Conv) TOTAL HIP ARTHROPLASTY Hip Replacement - (Added by TW Conv) [place] UNLISTED PROCEDURE ABDOME N PERITONEUM & OMENTUM Hernia Repair - (Added by TW Conv) JOINT REPLACEMENT 2012 VASECTOMY 1983 Medical History Medical History Date Comments Personal history of other di seases of the circulatory system History of hypertension - (A dded by TW Conv) Nonrheumatic aortic valve stenosis Arthritis 1987 Hypertension 2009 Sleep apnea 2000 Family History Medical History Relation Name Comments Cancer Father Thomas Collado Famil y history of cancer - (Added by TW Conv) Hypertension Father Thomas Collado Obesity Father Thomas Collado Alzheimer's disease Mother Thomas Post n Family history of Alzheimer's disease - (Added by TW Conv) Relation Name Status Comments Father Thomas Collado Mother Thomas Collado Social History Tobacco Use Types Packs/Day Years Used Date Smoking Tobacco: Never Smokeless Tobacco: Never Tobacco Cessation:Counseling Given: Not Answered Sex and Gender Information Value Date Recorded Sex Assigned at Not on file Legal Sex Male 9:47 AM SENIOR DESIGNER/ART DIRECTOR Gender Identity Not on file Sexual Orientation Not on file Obstetrics History Last Filed Vital Signs Vital Sign Reading Time Taken Comments Blood Pressure 114/70 07/19/2024 10:53 AM CDT Pulse 72 07/19/2024 10:53 AM CDT Temperature - - Respiratory Rate - - Oxygen Saturation 98% 07/19/2024 10:53 AM CDT Inhaled Oxygen Concentration - - Weight 126.1 kg (278 lb) 07/19/2024 10:53 AM CDT Height 175.3 cm (5' 9) 07/19/2024 10:53 AM CDT Body Mass Index 41.05 07/19/2024 10:53 AM CDT Plan of Treatment Health Maintenance Due Date Last Done Comments Colon Cancer Screening-Colonoscopy 1955 Depression Screening 1955 Fall Risk Assessment 1955 Hepatitis C Screening 1955 Prostate Cancer Screening-PSA 1955 DTaP/Tdap/Td Vaccine (1 - Tdap) 1968 Hepatitis B Screening 08/01/1975 Pneumococcal vaccine 65+ (1 of 1 - PCV) 08/01/2007 Well Visit 65+ 2022 Influenza Vaccine (#1) 2024 9, 01/22/2018, 01/07/2018, Additional history exists Zoster Vaccine Completed 03/08/2019, 12/22, 02/03/2015, Additional history exists Insurance MEDICARE [facility] MEDICARE FOR LIFE Care Teams Drugless Doctor Relationship Specialty Start Date End Date Omer Davies MD PCP - General Family Medicine 02/24/18
--- OUTSIDE RECORDS SUMMARY | 2024-12-13 14:03 | XMS_ITS | Clinical Summary ---
Author Organization [facility] Address formerly [facility] [place] [address] Care Team Providers Care Academic Services Professional Name Role Phone Unavailable Primary Care Provider [...] Td Vaccines ( 1 - Tdap) 1976 Pneumococcal Vaccine: 50+ Ye ars (1 of 1 - PCV) 08/01/2007 Zoster Vaccines (1 of 2) 08/01/2007 COVID-19 Vaccine ( - 2023-2 5 season) 2024 RSV Immunization or 60+ Years (1 - [...]
--- OUTSIDE RECORDS SUMMARY | 2024-12-13 14:03 | XMS_ITS | Encounter Summary ---
Author Organization [facility] Healthcare Address [address] [place] [address] Care Team Providers Care Manager Mortgage Name Role Phone Omer Davies MD Primary Care Provider Encounter Details Date Type Department Care Team (Late st Contact Info) Description 12/23/2023 Orders Only [facility] [address] [place] [id number] Scanning, Provider Social History Tobacco Use Types Packs/Day Years Used Date Smoking Tobacco: Never Cigarettes Smokeless Tobacco: Never Sex and Gender Information Value Date Recorded Sex Assigned at Not on file Legal Sex Male 9:47 AM RISK ASSESSMENT ANALYST Gender Identity Not on file Sexual Orientation Not on file documented as of this encounter Plan of Treatment Not on file documented as of this encounter Procedures Procedure Name Priority Date/Time Associated Diagnosis Comments SCAN - LABS 12/23/2023 9:28 PM CDT documented in this encounter Results * SCAN - LABS (12/23/2023 9:28 PM CDT) us Provider Scanning Final Result documented in this encounter Visit Diagnoses Not on filedocumented in this encounter Care Teams Manager Mortgage Relationship Specialty Start Date End Date Omer Davies MD PCP - General Family Medicine 02/24/18 documented as of this encounter
--- OUTSIDE RECORDS SUMMARY | 2024-12-13 14:03 | XMS_ITS | Clinical Summary ---
Author Organization [facility] Eugenie Raymundosowmya Address [address] [facility] [facility] [place] [address] Care Team Providers Care Rehabilitation Medicine Physician Name Role Phone Omer Davies MD Primary Care Provider [phone] Allergies No known active allergies Medications tamsulosin [...] daily. 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 Encounters Date Type Department Care Team Description 12/07/2024 External Device Data [facility] ABSTRACTION Provider, Abstract 09/14/2024 External Device Data [facility] ABSTRACTION Provider, Abstract [...] Sign Reading Time Taken Comments Blood Pressure 169/109 05/14/2024 9:38 AM DIRECTOR OF EDUCATION AND TRAINING did not take b/p meds this morning Pulse 100 05/14/2024 9:33 AM DIRECTOR OF EDUCATION AND TRAINING Temperature 36.1 C (97 F) 05/14/2024 9:33 AM DIRECTOR OF EDUCATION AND TRAINING Respiratory Rate 16 05/14/2024 9:33 AM DIRECTOR OF EDUCATION AND TRAINING Oxygen Saturation 95% 05/14/2024 9:3 3 AM DIRECTOR OF EDUCATION AND TRAINING Inhaled Oxygen Concentration - - Weight 138.4 kg (305 lb 3.2 oz) 05/14/2024 9:33 AM DIRECTOR OF EDUCATION AND TRAINING Height 175.3 cm (5' 9) 04/04/2021 9:59 AM DIRECTOR OF EDUCATION AND TRAINING Body Mass Index 45.07 04/04/2021 9:59 AM DIRECTOR OF EDUCATION AND TRAINING Plan of Treatment Upcoming Encounters Date Type Department Care Team (Late st Contact Info) Description 05/16/2025 10:00 AM DIRECTOR OF EDUCATION AND TRAINING Office Visit [facility] Oncology and Hematology - [place] [address] [place] [address] Reynaldo Ramirez MD [address] [facility] [address] [place] [address] Health Maintenance Due Date Last Done Comments Pre-Diabetes and Diabetes Screening 1955 DTAP/TDAP/TD VACCINES (1 - Tdap) 1976 COLORECTAL SCREENING 2002 Colorectal Cancer Screening 2002 FIT-DNA Q 3 years 2002 FIT/FOBT Q 1 year 2002 Flex Sig/CT Colonography Q 5 years 2002 PNEUMOCOCCAL VACCINE 50+ YEA RS (1 of 1 - PCV) 08/01/2007 ZOSTER VACCINE (2 of 3) 03/31/2015 02/03/2015, 01/06 RSV VACCINE (60+ or ) (1 - Risk 60-74 years 1-dose series) 2017 INFLUENZA VACCINE (#1) 2024 Insurance MEDICARE PART A AND B [facility] MEDICARE PART A AND B Care Teams Rehabilitation Medicine Physician Relationship Specialty Start Date End Date Omer Davies MD [address] [place] [address] PCP - General Family Practice 12/21/19
--- NOTE | 2024-12-13 14:35 | IVDEFINITY ---
Prior to administration of IV Definity the patient was educated on the risks and benefits of the imaging enhancing agent including potential adverse side effects. The patient verbalized understanding. Allergies were verified. No exclusion criteria were identified and at least one of the following inclusion criteria were met: 1) physician request, 2) patient technically difficult to image (per the [place] [employer] guidelines of two or more segments not discernable within the apical view), or 3) questionable left ventricular function. ?
== END 2024-12-13 13:42 | disposition home or self-care (01) ==
LOC: ANHCARD 13:42
PROVIDERS: PCP Family Medicine; Visit Provider Nurse Practitioner Family
DX: I10 Essential (primary) hypertension (principal)
CPT/HCPCS: C8929; Q9957